=== PATIENT | male | born 1945 | race Caucasian/White ===

== ENCOUNTER → 2019-03-02 | Outpatient (CLI) | payer MEDICARE, OTHER, SELFPAY ==
--- NOTE | 2019-03-02 10:34 | NEURO_ITS ---
NCS and/or EMG Patient Report Ordering Doctor: Jose Barry DATE OF SERVICE: 03/02/19 This is a bilateral upper extremity nerve conduction study in the right upper extremity EMG performed on this 73-year-old male with numbness in his hands as well as trigger finger. He has a history of diabetes with his most recent h emoglobin A1c around 9. Bilateral upper extremity sensory and motor nerve conduction studies are performed demonstrating prolongation of the median motor and sensory distal latencies with intact amplitudes but severe reduction in conduction velocities. The ulnar motor and sensory and radial sensory responses are symmetrically preserved however there is non-localizable reduction of the ulnar amplitude above the wrist. The median and ulnar F waves bilaterally are prolonged. Needle electromyography of the right upper extremity is performed. Muscles evaluated included the first dorsal interosseous, abductor pollicis brevis, brachioradialis, biceps, triceps and deltoid muscles. The abductor pollicis brevis muscle did demonstrate 1-2+ insertional activity with early recruitment and large motor unit amplitudes. The first dorsal interosseous to a lesser extent demonstrated early recruitment with large motor units but absence of pathologic spontaneous activity. All other muscles tested demonstrated normal insertional activity with absence of pathologic spontaneous activity and normal motor unit recruitment pattern as well as amplitude. 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 There is also evidence of non-localizable ulnar neuropathy bilaterally with an additional superimposed poly-neuropathy likely due to the patient's history of diabetes.
== END | disposition home or self-care (01) ==
PROVIDERS: Family Provider Family Medicine; PCP Family Medicine; Referring Provider Orthopaedic Surgery; Visit Provider Orthopaedic Surgery
DX: R20.2 Paresthesia of skin (principal); M25.531 Pain in right wrist
CPT/HCPCS: 95886; 95911

== ENCOUNTER 2021-04-22 10:54 | Day surgery (SDC) | payer MEDICARE, OTHER, SELFPAY ==
[2021-04-22 11:30] VITALS: BP 152/79; PULSE 70; RESP 16; TEMP 36.8; O2SAT 98; BMI 34.9
[2021-04-22] MEDS: Lactated Ringers 1,000 ML 100 ML IV (11:35)
[2021-04-22 11:56] LABS: Bedside Glucose 125 mg/dL (70-110)
--- NOTE | 2021-04-22 12:51 | RAD_ITS ---
STUDY: X-RAY - LUMBAR SPINE REASON FOR EXAM: Male, 75 years old. Spinal cord stimulator implant placement. TECHNIQUE: 7 intraprocedural digital documentation view(s) of the lumbar spine were obtained. COMPARISON: None FINDINGS: 7 images show placement of spinal stimulator. RAD/Lumbar Spine 2 or 3 Views IMPRESSION: Intraprocedural digital documentation images. Electronically Signed: Reynaldo Epps MD at 12:13 EDT , Service support ,
[2021-04-22] MEDS: Cefazolin 2 GM in 0.9% Normal Saline 100 ML IV (13:05)
[2021-04-22] MEDS: Lidocaine 2% (20 ml mdv) 20 ML Vial (13:35)
[2021-04-22] MEDS: Bupivacaine 0.25% 30 ML Vial (13:35)
[2021-04-22 14:52] VITALS: BP 142/67; BP 152/79; PULSE 69; RESP 16; TEMP 36.8; O2SAT 95
[2021-04-22 14:57] VITALS: BP 121/66; BP 152/79; PULSE 70; RESP 16; O2SAT 95
[2021-04-22 15:02] VITALS: BP 117/78; BP 152/79; PULSE 69; RESP 16; O2SAT 94
[2021-04-22 15:07] VITALS: BP 122/74; BP 152/79; PULSE 64; RESP 16; TEMP 36; O2SAT 93
[2021-04-22 16:20] VITALS: BP 143/93; BP 152/79; PULSE 70; RESP 16; TEMP 36.3; O2SAT 96
--- NOTE | 2021-04-22 16:48 | PCM.OPRPT ---
Report of Operation Date of Procedure: 04/22/21 Description of Surgical Findings:: Pre-Operative Diagnosis: Lumbosacral radiculopathy, lumbosacral degenerative disc disease, lumbosacral spinal stenosis Post-Operative Diagnosis: Lumbosacral radiculopathy, lumbosacral degenerative disc disease, lumbosacral spinal stenosis Surgery/Procedure Performed:: 1. Spinal cord stimulator thoracolumbar leads placement x2 #2 spinal cord stimulator Medtronic intellus generator placement #3 spinal cord stimulator generator pocket creation at the left gluteal region #4 spinal cord stimulator simple programming, 5-intraoperative fluoroscopic interpretation Description of Surgical Findings:: PROCEDURES: 1. Spinal cord stimulator thoracolumbar leads placement x2 #2 spinal cord stimulator Medtronic intellus generator placement #3 spinal cord stimulator generator pocket creation at the left gluteal region #4 spinal cord stimulator simple programming 5-intraoperative fluoroscopic interpretation PREOPERATIVE DIAGNOSES: Lumbosacral radiculopathy, lumbosacral degenerative disc disease, lumbosacral spinal stenosis POSTOPERATIVE DIAGNOSES: Lumbosacral radiculopathy, lumbosacral degenerative disc disease, lumbosacral spinal stenosis ANESTHESIA: MAC COMPLICATIONS: None BLOOD LOSS: Minimal Implanted device: Spinal cord stimulator lead [id number] lot number [id number], lead #2 [id number] lot number [id number] Medtronic spinal cord stimulator generator intellus serial number [id number] PROCEDURE IN DETAIL: History and physical today was reviewed. Risks and benefits of procedure explained. The patient understood, agreed to procedure, informed consent was obtained. IV inserted per routine protocol. The patient was taken to the operating room, placed in the prone position with a pillow positioned underneath the abdomen. A 2 g of Ancef IV piggyback was infused per anesthesia. The lower back and left gluteal area was prepped and draped in a sterile fashion using iodine x3 Ioban was placed. The C-arm was brought in position for AP view at the L2-3 vertebral bodies under direct visualization fluoroscopy on a true AP view the L2-3 interlaminar space was identified skin and subcutaneous tissue and size approximately 10 cc of a mix of 2% lidocaine and 0.25% Marcaine using a 25-gauge regular needle followed by a 25-gauge 3-1/2 inch spinal needle towards the interlaminar space at L2-3, the skin and subcutaneous tissue were then anesthetized and using an 11-gauge blade was then taken down to the skin and subcutaneous tissue using a 14-gauge 3-1/2 inch Touhy needle provided by the [employer] kit the needle was passed through the skin towards the interlaminar space at L2-3 and a paramedian approach the needle was then advanced under direct visualization fluoroscopy towards the interlaminar space at L2-3 [id number] technique was then carried to air towards the interlaminar space at L2-3 once the tip of the needle was in the epidural space and loss of resistance was encountered to air and after confirmation of AP as well as oblique view of the spinal cord stimulator lead was then advanced under direct visualization fluoroscopy to be at the tip of the lead at T8 and the bottom of the lead around mid T10 after confirmation of AP as well as lateral view to confirm correct placement of the lead in the posterior compartment of the epidural space the previous procedure was then repeated to a level above at L1-2 interlaminar space the second lead was then inserted under direct visualization with fluoroscopy to be at the mid T8 and mid T10 area the leads were were then connected to the external neurostimulator and patient was then awakened to confirm satisfactory coverage of the painful area once satisfactory coverage was then achieved the stylette of each needle was then removed and the skin and subcutaneous tissue on to the left of the paramedian needles was then taken anesthetized with a total of 10 cc of the previous mixture of 0.25% Marcaine and 2% lidocaine using a 25-gauge regular needle the incision was then taken down through the skin and subcutaneous tissue towards the fascia making sure hemostasis was then maintained via cautery, the spinal cord stimulator leads were then passed through the above incision and secured using the biwing and sutured down with a 2-0 silk to the fascia at that level the spinal cord stimulator leads were then tunneled via a tunneler provided by the [employer] kit towards the previously incised spinal cord stimulator battery at the left gluteal region skin and subcutaneous tissue were anesthetized with approximately 10 cc of a mix of 2% lidocaine and 0.25% Marcaine using a 25 gauge regular needle, skin and subcutaneous tissue was then taken down with the 11-gauge blade hemostasis was maintained with Bovie and direct pressure the incision was then taken down to the fascia and the battery was then secured with the 2-0 silk sutures that were the spinal cord stimulator leads the upper lead was then marked the new until spinal cord stimulator battery was then provided [employer] kit the battery was then reattached of the spinal cord stimulator make ensure that the top lead is attached to the top position from 0-7 electrodes and the bottom from 8-15 electrodes once impedance was then checked to be in the proper average number the intellus battery was then inserted into the pocket and impedance with when checked again the pocket was then inspected to confirm hemostasis in place, the intellus battery was then secured to the fascia using a 2-0 silk to the upper eyes of the battery confirming an upward writing of the intellus facing posterior, once complete confirmation the battery was then placed in the position and the the mid paramedian and the gluteal incisions were then closed primarily through a 3-0 Vicryl in a running fashion followed by a 4-0 Vicryl to the skin, hemostasis was then maintained during the procedure the skin was then covered with a Steri-Strips and bacitracin patient was then returned into the supine position in a stable condition and returned to recovery in a stable condition patient experienced no signs or symptoms of intrathecal or intravascular injection patient experienced no paresthesia the procedure was completed without any apparent difficulty any complication the patient appeared to tolerate well, motor as well as sensory function was unchanged from prior to the procedure ESTIMATED BLOOD LOSS: Minimal less than 25 mL ASSESSMENT AND PLAN: This is a 75-year-old male with lumbosacral radiculopathy lumbosacral degenerative disc disease lumbosacral spinal stenosis status post 1. Spinal cord stimulator thoracolumbar leads placement x2 #2 spinal cord stimulator Medtronic intellus generator placement #3 spinal cord stimulator generator pocket creation at the left gluteal region #4 spinal cord stimulator simple programming, 5-intraoperative fluoroscopic interpretation patient will continue his current medications a prescription was provided to the patient Keflex 500 mg 1 p.o. every 8 hours for 7 days postop instruction were given in writing to the patient and his as well as verbally and in writing, patient will follow approximately 1 week for reevaluation
== END 2021-04-22 16:53 | disposition home or self-care (01) ==
LOC: SDC 10:55 → AC 10:56
PROVIDERS: PCP Family Medicine; Referring Provider Anesthesiology Pain Medicine; Visit Provider Anesthesiology Pain Medicine
PROC: (CPT 63685; principal; 2021-04-22 12:35)
DX: Z45.42 Encounter for adjustment and management of neurostimulator (principal); M48.07 Spinal stenosis, lumbosacral region; M51.17 Intervertebral disc disorders with radiculopathy, lumbosacral region; I10 Essential (primary) hypertension; E03.9 Hypothyroidism, unspecified; E11.9 Type 2 diabetes mellitus without complications; M19.90 Unspecified osteoarthritis, unspecified site; I25.2 Old myocardial infarction; R58 Hemorrhage, not elsewhere classified; I25.10 Atherosclerotic heart disease of native coronary artery without angina pectoris; Z79.4 Long term (current) use of insulin; Z79.82 Long term (current) use of aspirin; Z79.899 Other long term (current) drug therapy; Z79.02 Long term (current) use of antithrombotics/antiplatelets; Z87.891 Personal history of nicotine dependence; Z79.891 Long term (current) use of opiate analgesic
CPT/HCPCS: 00300; 63650; 63685; 95971; 72100; 76000; 82962; C1778; C1820; J7120; J2405

== ENCOUNTER → 2021-07-11 20:02 | Outpatient (CLI) | payer MEDICARE, OTHER, SELFPAY ==
--- NOTE | 2021-07-11 20:42 | ED.RN ---
PATIENT SENT IN BY PCP PLASTERER FOREMAN FOR CONCERN FOR WIRE DISPLACEMENT FROM NERVE STIMULATOR. PER PLASTERER FOREMAN PHONE CALL AND ORDER WAS PLACED FOR OUTPATIENT TESTING. UNABLE TO OBTIAN ORDER AT THIS TIME. PATIENT CALLED PLASTERER FOREMAN VICENTE VARGAS AND VERBAL ORDER GIVEN TO THIS NURSE. PLACED ORDER BUT UNABLE TO PLACE ORDER UNDER THE PATIENTS PLASTERER FOREMAN. TELEPHONE ORDER PLACED UNDER DR. NGUYEN PATIENTS PRIMARY AT THIS TIME
--- NOTE | 2021-07-11 20:53 | RAD_ITS ---
STUDY: X-RAY - THORACIC SPINE REASON FOR EXAM: Male, 75 years old. SPINAL CORD STIMULATOR WIRE PLACEMENT S/P FALL TECHNIQUE: AP and lateral radiographic view(s) of the thoracic spine were obtained. COMPARISON: 05/22/2021 fluoroscopy FINDINGS: Spinal stimulator leads terminate at T9 (right lead) and T11 (left lead). Normal kyphosis of the thoracic spine. There is no substantial scoliosis. There is multilevel mild endplate spondylosis of the thoracic vertebrae. Normal disc space heights. The soft tissue structures are unremarkable. 2 cardiac leads partially demonstrated. RAD/Thoracic Spine 2 Views IMPRESSION: The right stimulator lead terminates at T9, as on 05/28/2021. The left stimulator lead terminates at T11, which is too level lower than 05/28/2021. Electronically Signed: Anthony Hernandez MD at 22:21 EDT Tel , Service support ,
== END ==
PROVIDERS: PCP Family Medicine; Visit Provider Anesthesiology Pain Medicine
DX: Z96.82 Presence of neurostimulator (principal)
CPT/HCPCS: 72070

== ENCOUNTER → 2021-07-12 13:56 | Outpatient (CLI) | payer MEDICARE, OTHER, SELFPAY ==
--- NOTE | 2021-07-12 14:35 | CT_ITS ---
STUDY: CT LUMBAR SPINE WITH CONTRAST REASON FOR EXAM: Male, 75 years old. R/O INFECTION / DISCITIS RADIATION DOSAGE (If Supplied By Facility): CTDIvol = ( 39.36 ) mGy, DLP = ( 1458.80 ) mGycm TECHNIQUE: The patient was scanned in a multi detector CT scanner. High resolution transaxial imaging was performed following the intravenous administration of . Images were obtained from L1 to S1 vertebral level. Sagittal and coronal images were reconstructed. Individualized dose optimization techniques were used for this CT. COMPARISON: None FINDINGS: Spinal cord stimulator electrodes are seen along the posterior epidural space. Normal lumbar lordosis. There is no substantial scoliosis. Normal vertebrae of the lumbar spine. L1-2: Mild degree of disc space narrowing. Anterior spondylosis. L2-3: Mild degree of anterior spondylosis. The disc spaces well maintained. L3-4: Normal endplates. Normal disc height and morphology. Normal bilateral facet joints. Normal central canal and bilateral lateral recesses. Normal bilateral intervertebral neural foramina. L4-5: Facet joint osteoarthritis. Hypertrophy. Mild degree of bilateral neural foraminal stenosis. L5-S1: Normal endplates. Normal disc height and morphology. Normal bilateral facet joints. Normal central canal and bilateral lateral recesses. Normal bilateral intervertebral neural foramina. There is a 3.9 cm x 5.3 cm cyst in the upper pole of the right kidney. There is a 1.5 cm cyst in the upper pole of the left kidney. There is also evidence of a dominant cyst in the lower pole of the right kidney measuring 6 cm as well as a small cyst in the lower pole of the left kidney. There is evidence of prominent soft tissue density measuring 4.7 cm x 1.7 cm posterior to the L1-L2 disc space level within the subcutaneous tissues this is at the entrance site of the electrodes from the stimulator device. There is evidence of overlying skin thickening and findings suggestive of possible ulceration at that site. Clinical correlation is recommended. CT/Spine Lumbar WITH Contrast IMPRESSION: Multilevel degenerative changes, as described above. Soft tissue thickening and ulceration of the overlying skin posterior to the L1-L2 level at the entrance of the electrodes from the stimulator device. No abscess is seen at that site at this time. Bilateral renal cysts more prominent on the right side. Electronically Signed: Christiano Rosado MD at 15:13 EDT , Service support ,
[2021-07-12 14:41] LABS: CREATININE FINGERSTICK 1.4 mg/dL (0.70-1.30)
== END ==
PROVIDERS: PCP Family Medicine; Visit Provider Anesthesiology Pain Medicine
DX: M46.40 Discitis, unspecified, site unspecified (principal)
CPT/HCPCS: 72132; Q9967

== ENCOUNTER 2021-07-15 11:39 | Inpatient (IN) | payer MEDICARE, OTHER, SELFPAY ==
[2021-07-15] VITALS (7 sets, daily range): BP systolic 124–163; BP diastolic 60–98; PULSE 64–89; RESP 18–24; TEMP 36.6–37.4; O2SAT 95–98; BMI 33.6; BMI 34.0
[2021-07-15 12:10] LABS: Absolute Lymphocyte Count 0.98 X10^3/uL (0.83-4.51); Absolute Neutrophil Count 9.2 X10^3/uL (2.0-7.7); Basophil# 0.05 X10^3/uL; Basophil% 0.4 % (0-1); Eosinophil# 0.07 X10^3/uL; Eosinophils% 0.6 % (0-5); Hematocrit 30.7 % (40-54); Lymphocyte # 0.98 X10^3/ul (0.83-4.51); Lymphocyte % 8.5 % (19-41); Mean Corp Hgb Conc 32.6 g/dL (32-36); Mean Corpuscular Hgb 28.2 pg (27.0-32.0); Mean Corpuscular Volume 86.5 fL (80-94); Monocyte# 1.16 X10^3/uL; Monocyte% 10.1 % (0-10); NRBC Flagged by Analyzer 0 % (0-5); Neutrophil # 9.17 X10^3/uL (2.7-7.7); Platelet Count 267 K/mm3 (150-450); RBC Distribution Width CV 13.2 % (11.6-14.6); RBC Distribution Width SD 42.3 fl (35.1-43.9); Red Blood Count 3.55 M/mm3 (4.6-6.2); White Blood Count 11.5 K/mm3 (4.4-11.0)
[2021-07-15 12:55] LABS: Anion Gap 7 (5-15); BUN 26 mg/dL (7-18); BUN/Creat Ratio 18.7 RATIO (10-20); Calcium,Total 8.8 mg/dL (8.5-10.1); Chloride 103 mmol/L (98-107); Creatinine, Serum 1.39 mg/dL (0.70-1.30); EST Glomerular Filtration Rate 53 mL/min (>60); Est Glom Filt Rate - Afr Amer 64 mL/min (>60); Estimated Creatinine Clearance 48.91 ml/min; Glucose 46 mg/dL (74-106); Potassium 4.1 mmol/L (3.5-5.1); Sodium Level 135 mmol/L (136-145)
--- NOTE | 2021-07-15 13:37 | EKG12_ITS ---
Test Reason : Blood Pressure : / mmHG Vent. Rate : 071 BPM Atrial Rate : 071 BPM P-R Int : 194 ms QRS Dur : 180 ms QT Int : 504 ms P-R-T Axes : 070 -82 073 degrees QTc Int : 547 ms Atrial-sensed ventricular-paced rhythm Abnormal ECG Confirmed by MAXIMILIAN MATHIS, LAUREN ([id number]), assistant production editor CATHY HEAD ([id number]) on 07/17/2021 10:21:31 AM Referred By: ROBERT Confirmed By:LAUREN YAO MD
--- NOTE | 2021-07-15 14:02 | RAD_ITS ---
STUDY: X-RAY CHEST REASON FOR EXAM: Male, 75 years old. Sob TECHNIQUE: Single AP portable view of the chest. COMPARISON: None. FINDINGS: EKG electrodes are seen. Electrodes from a TENS unit are seen with the tip at the T8-T9 level. The lungs are clear and expanded. There is no demonstrated pleural abnormality. A left-sided dual-chamber pacemaker is seen. Normal mediastinum and rajwinder. Normal visualized pulmonary arteries. There is atherosclerotic calcification of the aortic arch with tortuosity. Normal visualized thoracic spine. Normal visualized ribs, clavicles, and shoulders. There is no demonstrated abnormality of the visualized soft tissue structures of the upper abdomen. RAD/Chest 1 View (Portable) IMPRESSION: No acute abnormality is present. Electronically Signed: Christiano Rosado MD at 14:32 EDT , Service support ,
--- NOTE | 2021-07-15 14:20 | EX.ED.DYSGE1 ---
HPI History of Present Illness Chief Complaint: Wound Informant: patient Narrative Narrative: 75-year-old male presenting with wound infection. Patient was sent in by Dr. Boles. He had a spinal stimulator implanted approximately 3 months ago. The incision has opened and is now infected. He has been on Augmentin since Thursday. He has had fever up to 100.[address] was obtained as an outpatient. Discussed with Dr. Boles who recommends admission for IV antibiotics and ID consult. He is on Plavix so this will need to be on hold for possible surgery for removal. Prior similar symptoms: No Recent Illness/Hospitalization: No [facility] Medical History (Updated 07/15/21 @ 15:[address] Lisset Lopez MD) Arthritis Back pain Back problem Back problem Cardiology follow-up encounter Diabetes Diabetes type 2, controlled Easy bruising Excessive bleeding Former smoker Heart disease High cholesterol History of heart attack History of irregular heartbeat History of stress test HTN (hypertension) Hx of cardiac pacemaker (~08/2020) Hx of fracture of leg Hx of fracture of right hip Insulin dependent diabetes mellitus Thyroid disease Wears glasses Wears hearing aid Home Medications aspirin 81 mg tablet,delayed release 81 mg PO DAILY 02/02/18 [History Last Taken Unknown] blood sugar diagnostic #20 ea 02/02/18 [History Last Taken Unknown] clopidogrel 75 mg tablet 75 mg PO QDAY tab 02/02/18 [History Last Taken 04/13/21] levothyroxine 50 mcg tablet 50 mcg PO DAILY 02/02/18 [History Last Taken Unknown] magnesium hydroxide 400 mg (170 mg magnesium) chewable tablet 400 mg PO DAILY 02/02/18 [History Last Taken Unknown] multivitamin 1 tab PO QDAY 02/02/18 [History Last Taken Unknown] rosuvastatin 40 mg tablet 40 mg PO QDAY 02/02/18 [History Last Taken Unknown] tramadol 50 mg tablet 50 mg PO QDAY PRN tab 02/02/18 [History Last Taken Unknown] cholecalciferol (vitamin D3) 25 mcg (1,000 unit) capsule 1,000 unit PO QDAY 02/11/18 [History Last Taken Unknown] metformin 850 mg tablet 850 mg PO BID tab 02/11/18 [History Last Taken Unknown] nitroglycerin 0.4 mg sublingual tablet 0.4 mg SUBLINGUAL Q5M PRN 02/11/18 [History Last Taken Unknown] insulin aspart U-100 100 unit/mL (3 mL) subcutaneous pen 24 unit SC TID #9 ml 08/30/18 [Rx Last Taken Unknown] dulaglutide [Trulicity] 1.5 mg SUBCUT QWEEK 04/16/21 [History Last Taken Unknown] insulin glargine [Lantus Solostar U-100 Insulin] 70 unit SC QHS 04/16/21 [History Last Taken Unknown] Allergy/AdvReac Type Severity Reaction Status Date / Time No Known Allergies Allergy Verified 04/16/21 14:14 Family History Mother Diabetes Father Cancer Surgical History History of cardiac catheterization (~2012) History of carpal tunnel surgery of left wrist History of carpal tunnel surgery of right wrist History of coronary artery stent placement Social History (Updated 02/15/18 @ 08:58 by Reva Bloom ELECTRICAL AUTOMATION ENGINEER, ELECTRICAL AUTOMATION ENGINEER-C) Smoking Status: Former smoker second hand exposure: No alcohol intake: never substance use type: does not use ROS ROS ED Constitutional Constitutional ED: Reports chills and fever(s) Eyes Eyes: Denies change in vision ENT ENT ED: Denies rhinorrhea or sore throat Cardiovascular Cardiovascular: Denies chest pain or palpitations Respiratory/Chest Respiratory/Chest: Denies cough or dyspnea Gastrointestinal Gastrointestinal: Denies abdominal pain, diarrhea, nausea or vomiting Genitourinary Genitourinary ED: Denies dysuria Musculoskeletal Musculoskeletal: Reports back pain; Denies myalgias Integumentary Denies rash Neurologic Neurologic: Denies headache(s), paresthesias or weakness Psychiatric Psychiatric: Denies suicidal thoughts EXAM Physical Exam Const Vital Signs: 07/15/21 11:41 07/15/21 13:01 07/15/21 14:27 Temperature 99.1 F 99 F Temperature Source Temporal Temporal Pulse Rate 89 80 69 Respiratory Rate 18 24 H 22 H Blood Pressure 163/78 H 153/98 H 124/60 H Blood Pressure Mean 106 116 81 Pulse Ox 95 97 95 Oxygen Delivery Method Room Air Room Air Room Air Positive well nourished and well developed General Appearance ED: well developed HEENT Reports normocephalic and head/scalp atraumatic Eyes PERRL and EOMs intact bilaterally Neck supple General: Negative for tenderness Chest Wall inspection of chest normal Resp normal respiratory effort and clear to auscultation bilaterally Cardio regular rate and regular rhythm GI non-tender and non-distended Palpation: soft; Negative for guarding or rebound tenderness present no CVA tenderness Back/Spine Back/Spine Narrative: Incision lower back with surrounding erythema, mild amount of serosanguineous drainage. No fluctuance. Extremity normal to inspection Neuro oriented x3 and no sensory deficits noted Sensorium / Orientation: alert Motor Exam: strength 5/5 throughout Psych mental status grossly normal MDM MDM MDM Narrative Medical decision making narrative: Blood and wound cultures were sent. CBC shows white count 11.5, hemoglobin 10.0. Chemistries show creatinine 1.39. Lactic acid is normal. High-sensitivity troponin 74. Covid is negative. Chest x-ray read by myself and radiology shows no acute process. Patient was given vancomycin IV. Discussed with hospitalist for admission. Lab Data Attestation: I reviewed the patient's lab results. Labs: Laboratory Results - last 24 hr 07/15/21 07/15/21 07/15/21 11:54 12:30 12:30 WBC 11.5 H RBC 3.55 L Hgb 10.0 L Hct 30.7 L MCV 86.5 MCH 28.2 MCHC 32.6 RDW Std Deviation 42.3 RDW Coeff of Konstantin 13.2 Plt Count 267 MPV 10.0 Immature Gran % (Auto) 0.400 Neut % (Auto) 80.0 H Lymph % (Auto) 8.5 L Dawson % (Auto) 10.1 H Eos % (Auto) 0.6 Baso % (Auto) 0.4 Absolute Neuts (auto) 9.2 H Absolute Lymphs (auto) 0.98 Nucleated RBC % 0 Sodium 135 L Potassium 4.1 Chloride 103 Carbon Dioxide 25.0 Anion Gap 7 BUN 26 H Creatinine 1.39 H Estim Creat Clear Calc 48.91 Est GFR (MDRD) Af Amer 64 Est GFR (MDRD) Non-Af 53 L BUN/Creatinine Ratio 18.7 Glucose 46 L Lactic Acid Calcium 8.8 Troponin I High Sens 74 07/15/21 13:47 WBC RBC Hgb Hct MCV MCH MCHC RDW Std Deviation RDW Coeff of Konstantin Plt Count MPV Immature Gran % (Auto) Neut % (Auto) Lymph % (Auto) Dawson % (Auto) Eos % (Auto) Baso % (Auto) Absolute Neuts (auto) Absolute Lymphs (auto) Nucleated RBC % Sodium Potassium Chloride Carbon Dioxide Anion Gap BUN Creatinine Estim Creat Clear Calc Est GFR (MDRD) Af Amer Est GFR (MDRD) Non-Af BUN/Creatinine Ratio Glucose Lactic Acid 0.9 Calcium Troponin I High Sens Radiography Chest X-Ray - ED: 1 View, Read by ED Physician and Read by Radiologist Diagnostic Testing: Radiology Impression Chest X-Ray 07/15/21 14:02 IMPRESSION: No acute abnormality is present. Electronically Signed: Christiano Rosado MD at 14:32 EDT , Service support , EKG Initial EKG: Attestation: I personally reviewed and interpreted this EKG as follows: Comments: Paced rhythm Discharge Plan Triage Chief Complaint: Wound ED Provider: Lisset Lopez Dx/Rx/DC Orders Clinical Impression: Wound infection Prescriptions: No Action aspirin [Adult Aspirin Regimen] 81 mg tablet,delayed release (DR/EC) 81 mg PO DAILY RF: 0 clopidogrel 75 mg tablet 75 mg PO QDAY RF: 0 levothyroxine [Levo-T] 50 mcg tablet 50 mcg PO DAILY RF: 0 magnesium hydroxide 400 mg (170 mg) chewable tablet 400 mg (170 mg) tablet,chewable 400 mg PO DAILY RF: 0 tramadol 50 mg tablet 50 mg PO QDAY PRN (Reason: Pain) RF: 0 rosuvastatin [Crestor] 40 mg tablet 40 mg PO QDAY RF: 0 (DME) blood sugar diagnostic [TrendalyticsTouch Verio test strips] strip See Dose Instructions .ROUTE .MEDSUPPLY Qty: 20 RF: 0 multivitamin tablet 1 tab PO QDAY RF: 0 metformin [Glucophage] 850 mg tablet 850 mg PO BID RF: 0 nitroglycerin 0.4 mg tablet, sublingual 0.4 mg SUBLINGUAL Q5M PRN (Reason: Chest Pain) RF: 0 cholecalciferol (vitamin D3) 1,000 unit capsule 1,000 unit PO QDAY RF: 0 Trulicity 1.5 mg/0.5 mL Pen Injector 1.5 mg SUBCUT QWEEK RF: 0 Lantus Solostar U-100 Insulin 100 unit/mL (3 mL) insulin pen 70 unit SC QHS RF: 0 Novolog Flexpen U-100 Insulin 100 unit/mL insulin pen 24 unit SC TID Qty: 9 RF: 5 Primary Care Provider: John Rabago Referrals: John Rabago MD [Primary Care Provider] - Disposition Disposition: Acute Care Hospital [facility] [place] [facility]
[2021-07-15 14:33] LABS: Lactic Acid 0.9 mmol/L (0.4-1.9)
[2021-07-15 14:34] LABS: Troponin-I HS 74 pg/mL (3.0-78.0)
--- NOTE | 2021-07-15 15:11 | PCM.HP.STD ---
HPI - General General Date of Admission: 07/15/21 Date of Service: 07/15/21 Chief Complaint: Progressive infected back wound HPI Narrative FIDELINA CONRAD, is a 75 M who presents with progressive low back wound and discharge. He is a patient of Dr. Boles. He had a spinal stimulator placed on 04/22/21 for advanced lumbosacral radiculopathy, lumbosacral degenerative disease and spinal stenosis. Patient states that his wound was closed after the procedure. He was recently admitted to [facility] and was lying mostly in bed when his wound irritated and opened up. He subsequently has been having progressive wound discharge. He had CT of the lumbar spine done on which showed soft tissue thickening ulceration of the overlying skin posterior to the L1-L2 level at the entrance of the left shows from the stimulator device. No abscess is seen at the site at this time. Patient was seen by Dr. Boles on 07/12/21 and was recommended started on Augmentin. He followed up today in the office and was recommended to come to the hospital for IV antibiotics. Wound cultures have been taken from the ED. Patient stated that his pain is 10 out of 10, usually in the lower back, does not radiate. Worse with sitting up and movement. He denied any fever or chills or nausea or vomiting or diarrhea or headaches of blurred vision or neck pain. No progressive numbness or tingling no incontinence of urine or stool. [facility] Medical History Arthritis Back pain Back problem Back problem Cardiology follow-up encounter Diabetes Diabetes type 2, controlled Easy bruising Excessive bleeding Former smoker Heart disease High cholesterol History of heart attack History of irregular heartbeat History of stress test HTN (hypertension) Hx of cardiac pacemaker (~08/2020) Hx of fracture of leg Hx of fracture of right hip Insulin dependent diabetes mellitus Thyroid disease Wears glasses Wears hearing aid Home Medications aspirin 81 mg tablet,delayed release 81 mg PO DAILY 02/02/18 [History Last Taken 07/14/21] clopidogrel 75 mg tablet 75 mg PO DAILY tab 02/02/18 [History Last Taken 07/12/21] multivitamin 1 tab PO DAILY 02/02/18 [History Last Taken 07/15/21] rosuvastatin 40 mg tablet 40 mg PO DAILY 02/02/18 [History Last Taken 07/15/21] tramadol 50 mg tablet 50 mg PO DAILY tab 02/02/18 [History Last Taken Unknown] nitroglycerin 0.4 mg sublingual tablet 0.4 mg SUBLINGUAL Q5M PRN 02/11/18 [History Last Taken Unknown] insulin aspart U-100 100 unit/mL (3 mL) subcutaneous pen 24 unit SC TID #9 ml 08/30/18 [Rx Last Taken 07/15/21] dulaglutide [Trulicity] 1.5 mg SUBCUT WE 04/16/21 [History Last Taken 07/10/21] insulin glargine [Lantus Solostar U-100 Insulin] 70 unit SC QHS 04/16/21 [History Last Taken 07/14/21] gabapentin 600 mg PO TID 07/15/21 [History Last Taken 07/15/21] metformin 850 mg PO BID 07/15/21 [History Last Taken 07/15/21] nabumetone 750 mg PO BID 07/15/21 [History Last Taken 07/15/21] Allergy/AdvReac Type Severity Reaction Status Date / Time No Known Allergies Allergy Verified 04/16/21 14:14 Family History Mother Diabetes Father Cancer Surgical History History of cardiac catheterization (~2012) History of carpal tunnel surgery of left wrist History of carpal tunnel surgery of right wrist History of coronary artery stent placement Social History Smoking Status: Former smoker second hand exposure: No alcohol intake: never substance use type: does not use ROS ROS Narrative Constitutional:Denies: Anorexia, Chills, Fever, Night Sweats, Weight Change, Malaise, Weakness, Fatigue. Eyes: Denies: Blurred vision, Cataracts, Conjunctivae Inflammation, Pain, Redness, Vision Change HEENT: Denies: Difficulty Hearing, Difficulty Swallowing, Head Aches, Hearing Changes, Sinus Congestion, Sinus Drainage Cardiovascular: Denies: Chest Pain, Orthopnea, Palpitations Respiratory: Denies: Cough, Shortness of breath at rest, Sputum production Gastrointestinal: Denies: Abdominal Pain, Nausea, Vomiting Genitourinary: Denies: Dysuria Musculoskeletal: See HPI Skin: See HPI Neurological: Denies: Numbness, Tingling, Focal weakness Vital Signs Vital Signs Vital Signs: 07/15/21 11:41 07/15/21 13:01 07/15/21 14:27 Temperature 99.1 F 99 F Temperature Source Temporal Temporal Pulse Rate 89 80 69 Respiratory Rate 18 24 H 22 H Blood Pressure 163/78 H 153/98 H 124/60 H Blood Pressure Mean 106 116 81 Pulse Ox 95 97 95 Oxygen Delivery Method Room Air Room Air Room Air 07/15/21 15:10 07/15/21 15:11 Temperature 99.4 F H 99.4 F H Temperature Source Temporal Temporal Pulse Rate 64 66 Respiratory Rate 20 H 20 H Blood Pressure 135/80 H 135/80 H Blood Pressure Mean 98 98 Pulse Ox Oxygen Delivery Method Room Air Weight Weight: 109.316 kg Body Mass Index (BMI) 33.6 Physical Exam Narrative Physical exam: General: Alert, Oriented x3, Cooperative, No apparent distress, Well developed, hard of hearing, obese HEENT: Atraumatic Oral: Moist Mucosa Neck: Supple Lungs: Clear to auscultation Cardiovascular: HS I+II, regular, no murmurs Abdomen: Bowel Sounds Present, Soft, Non Tender Extremities: No edema Skin: Swelling over lumbosacral region?L1/L2, fluctuant, slight discharge, tender, no surrounding erythema Results Lab / Micro Data Result Diagrams: 07/15/21 11:54 07/15/21 12:30 Labs: Laboratory Results - last 24 hr 07/15/21 11:54: WBC 11.5 H, RBC 3.55 L, Hgb 10.0 L, Hct 30.7 L, MCV 86.5, MCH 28.2, MCHC 32.6, RDW Std Deviation 42.3, RDW Coeff of Konstantin 13.2, Plt Count 267, MPV 10.0, Immature Gran % (Auto) 0.400, Neut % (Auto) 80.0 H, Lymph % (Auto) 8.5 L, [place] % (Auto) 10.1 H, Eos % (Auto) 0.6, Baso % (Auto) 0.4, Absolute Neuts (auto) 9.2 H, Absolute Lymphs (auto) 0.98, Nucleated RBC % 0 07/15/21 12:30: Sodium 135 L, Potassium 4.1, Chloride 103, Carbon Dioxide 25.0, Anion Gap 7, BUN 26 H, Creatinine 1.39 H, Estim Creat Clear Calc 48.91, Est GFR (MDRD) Af Amer 64, Est GFR (MDRD) Non-Af 53 L, BUN/Creatinine Ratio 18.7, Glucose 46 L, Calcium 8.8 07/15/21 12:30: Troponin I High Sens 74 07/15/21 13:47: Lactic Acid 0.9 Micro: Microbiology 07/15/21 13:50 Nasal Secretion SARS-CoV-2 Antigen (Rapid) - Final Radiology Impression Chest X-Ray 07/15/21 14:02 IMPRESSION: No acute abnormality is present. Electronically Signed: Christiano Rosado MD at 14:32 EDT , Service support , Assessment & Plan Assessment/Plan (1) Wound dehiscence: (2) Type 2 diabetes mellitus with complication, with long-term current use of insulin: (3) Essential hypertension, benign: (4) Heart disease: (5) Hypothyroid: QUALIFIERS: Hypothyroidism type: acquired Qualified Code(s): E03.9 - Hypothyroidism, unspecified PLAN: 1. Acute lumbar sacral and wound dehiscence;patient with underlying spinal stimulator placed on 04/22/21 There is concern for possible infected spinal stimulator Admitting WBC count is 11.5 Patient had a recent CT of the lumbar spine that showed soft tissue thickening and ulceration of the overlying skin Patient cannot have an MRI Discussed with Dr. Boles -for consult infectious disease, IV vancomycin and Zosyn Follow-up on wound cultures taken in the ED Wound RN consult We will hold Plavix and aspirin in anticipation of surgery Continue current tramadol for pain 2. Recent acute kidney injury in an outside hospital Patient being admitted creatinine 1.39, unclear recent creatinine levels 3. Type II DM, complicated by peripheral neuropathy, with current hypoglycemia on admitting BMP Will hold Lantus for now as well as Metformin Continue insulin sliding scale with blood glucose checks for now Continue gabapentin 4. Hyperlipidemia, on statin I discussed and explained in details the various types of CODE STATUS-full code, DNR CCA, DNR CC. Patient chose full code. He wants everything done in the event of a cardiopulmonary arrest. Time spent discussing CODE STATUS 18 minutes Charges/Coding Visit Charges Inpatient E&M: 09154 Init Hosp L3 Procedures Hospitalists Procedures: 74521 Advncd Care Plan 30 Min
[2021-07-15 15:26] LABS: Bedside Glucose 88 mg/dL (70-110)
[2021-07-15 17:26] LABS: Bedside Glucose 106 mg/dL (70-110)
[2021-07-15] MEDS: 0.9% Normal Saline 1,000 ML 75 ML IV (17:28)
[2021-07-15 21:46] LABS: Bedside Glucose 158 mg/dL (70-110)
[2021-07-15] MEDS: Atorvastatin Calcium 80 MG Tablet PO (21:51)
[2021-07-15] MEDS: Insulin Lispro 100 UNIT/ML INSULN.PEN SC (21:51)
[2021-07-15] MEDS: Gabapentin 600 MG Tablet PO (21:51)
[2021-07-15] MEDS: traMADol 50 MG Tablet PO (21:51)
[2021-07-16] MEDS: Acetaminophen 325 MG Tablet 650 MG PO ×2 (01:12→10:21)
[2021-07-16] MEDS: MELATONIN 3 MG TABLET PO (01:12)
[2021-07-16 03:58] VITALS: BP 144/84; PULSE 74; RESP 16; TEMP 37.2; O2SAT 93
[2021-07-16] MEDS: Vancomycin IV 1,000 MG/200 ML BAG 200 MG IV ×2 (04:04→16:21)
[2021-07-16 06:22] LABS: Absolute Lymphocyte Count 0.88 X10^3/uL (0.83-4.51); Absolute Neutrophil Count 8.6 X10^3/uL (2.0-7.7); Basophil# 0.06 X10^3/uL; Basophil% 0.6 % (0-1); Eosinophil# 0.21 X10^3/uL; Eosinophils% 1.9 % (0-5); Hematocrit 27.5 % (40-54); Hemoglobin 8.7 g/dL (13.0-16.5); Lymphocyte # 0.88 X10^3/ul (0.83-4.51); Lymphocyte % 8.1 % (19-41); Mean Corp Hgb Conc 31.6 g/dL (32-36); Mean Corpuscular Hgb 27.6 pg (27.0-32.0); Mean Corpuscular Volume 87.3 fL (80-94); Mean Platelet Vol. 9.6 fl (6.2-12.0); Monocyte# 1.09 X10^3/uL; Monocyte% 10.1 % (0-10); NRBC Flagged by Analyzer 0 % (0-5); Neutrophil # 8.55 X10^3/uL (2.7-7.7); Neutrophil % 78.9 % (47-70); Platelet Count 228 K/mm3 (150-450); RBC Distribution Width CV 13.3 % (11.6-14.6); RBC Distribution Width SD 42.9 fl (35.1-43.9); Red Blood Count 3.15 M/mm3 (4.6-6.2); White Blood Count 10.8 K/mm3 (4.4-11.0)
[2021-07-16] MEDS: Insulin Lispro 100 UNIT/ML INSULN.PEN SC ×4 (06:31→21:39)
[2021-07-16] MEDS: Gabapentin 600 MG Tablet PO ×3 (06:31→21:39)
[2021-07-16] MEDS: Levothyroxine 50 MCG Tablet PO (06:31)
[2021-07-16 06:41] LABS: Bedside Glucose 179 mg/dL (70-110)
[2021-07-16 06:49] LABS: ALB/GLOB Ratio 0.4 RATIO (0.9-2.4); AST(SGOT) 22 U/L (15-37); Alanine Aminotransfer ALT/SGPT 22 U/L (16-61); Albumin, Serum 2.1 g/dL (3.2-5.0); Alkaline Phosphatase 79 U/L (45-117); Anion Gap 7 (5-15); BUN 23 mg/dL (7-18); BUN/Creat Ratio 16.8 RATIO (10-20); Chloride 105 mmol/L (98-107); Creatinine, Serum 1.37 mg/dL (0.70-1.30); EST Glomerular Filtration Rate 54 mL/min (>60); Est Glom Filt Rate - Afr Amer 65 mL/min (>60); Estimated Creatinine Clearance 49.62 ml/min; Globulin 4.9 g/dL (2.2-4.2); Glucose 214 mg/dL (74-106); Potassium 4.4 mmol/L (3.5-5.1); Sodium Level 137 mmol/L (136-145)
[2021-07-16] MEDS: Juven (unflavored) Packet 1 PACKET PO ×2 (07:43→16:25)
[2021-07-16 07:53] VITALS: BP 144/69; PULSE 66; RESP 18; TEMP 37.1; O2SAT 95
--- NOTE | 2021-07-16 08:28 | WOUNDNOTE ---
wound photo: mid lower back
--- NOTE | 2021-07-16 09:33 | PCM.CONS.GEN ---
Assessment & Plan Assessment/Plan (1) Wound infection: PLAN: Concern for infection of spine stimulator at spine implantation site. Wound cx pending. CT done recently. Pt of Dr. Boles. Is covid vaccinated. On augmentin for a few days prior to admit. Cont vanc, will change zosyn to cefepime in order to have some PASTRY DECORATOR penetration as a precaution. May need device removal, otherwise will need indefinite course of abx given suspected infected hardware. Will follow, thank you, d/w nursing HPI Consult Data Date of Consult: 07/16/21 HPI Narrative HPI Narrative: FIDELINA CONRAD, is a 75 M who presented with dehiscence, pain, redness over lumbar site of implanted spine stimulator. Minimal symptoms over L hip device. Device implanted by Dr. Boles 04/22/21. Pt recently admitted to [facility] for uti, given iv abx. While in bed, back got irritated, worsening symptoms over past week. Completed abx for uti about a week ago. Saw Dr. Boles for his wound, given augmentin starting 07/12. Some mild fever and chills, no n/v/d. No headache or neck pain. Has had covid vaccine. Admitted here on vanc/zosyn. Full ROS performed and neg except as noted above. [facility] Medical History Arthritis Back pain Back problem Back problem Cardiology follow-up encounter Diabetes Diabetes type 2, controlled Easy bruising Excessive bleeding Former smoker Heart disease High cholesterol History of heart attack History of irregular heartbeat History of stress test HTN (hypertension) Hx of cardiac pacemaker (~08/2020) Hx of fracture of leg Hx of fracture of right hip Insulin dependent diabetes mellitus Kidney disease Status post insertion of nerve stimulator Thyroid disease Wears glasses Wears hearing aid Home Medications aspirin 81 mg tablet,delayed release 81 mg PO DAILY 02/02/18 [History Last Taken 07/14/21] clopidogrel 75 mg tablet 75 mg PO DAILY tab 02/02/18 [History Last Taken 07/13/21] multivitamin 1 tab PO DAILY 02/02/18 [History Last Taken 07/15/21] rosuvastatin 40 mg tablet 40 mg PO DAILY 02/02/18 [History Last Taken 07/15/21] tramadol 50 mg tablet 50 mg PO DAILY PRN tab 02/02/18 [History Last Taken Unknown] nitroglycerin 0.4 mg sublingual tablet 0.4 mg SUBLINGUAL Q5M PRN 02/11/18 [History Last Taken Unknown] dulaglutide [Trulicity] 1.5 mg SUBCUT WE 04/16/21 [History Last Taken 07/10/21] insulin glargine [Lantus Solostar U-100 Insulin] 50 unit SC QHS 04/16/21 [History Last Taken 07/14/21] gabapentin 600 mg PO TID 07/15/21 [History Last Taken 07/15/21] insulin aspart U-100 [Novolog Flexpen U-100 Insulin] 20 unit SC TID 07/15/21 [History Last Taken 07/15/21] levothyroxine 50 mcg PO DAILY 07/15/21 [History Last Taken 07/15/21] magnesium oxide 400 mg PO DAILY 07/15/21 [History Last Taken 07/15/21] meclizine 25 mg PO TID PRN 07/15/21 [History Last Taken Unknown] Allergy/AdvReac Type Severity Reaction Status Date / Time No Known Allergies Allergy Verified 04/16/21 14:14 Family History Mother Diabetes Father Cancer Surgical History History of cardiac catheterization (~2012) History of carpal tunnel surgery of left wrist History of carpal tunnel surgery of right wrist History of coronary artery stent placement Social History Smoking Status: Former smoker second hand exposure: No alcohol intake: never substance use type: does not use Physical Exam Const alert, oriented x3 and no apparent distress General Appearance: cooperative Exam Limitations: no limitations HEENT normocephalic and head/scalp atraumatic Eyes PERRL and EOMs intact bilaterally Neck No nuchal rigidity, supple and No nodes Resp normal air movement and clear to auscultation bilaterally Cardio regular rate, regular rhythm and no murmurs GI normal to inspection, nondistended, normoactive bowel sounds Extremity no clubbing, cyanosis or edema Skin Skin Narrative: Lumbar incision site with small dehiscence, pain, redness Neuro CN's II-XII intact bilaterally Lab / Micro Data Result Diagrams: 07/16/21 06:15 07/16/21 06:15 Labs: Laboratory Results - last 24 hr 07/15/21 11:54: WBC 11.5 H, RBC 3.55 L, Hgb 10.0 L, Hct 30.7 L, MCV 86.5, MCH 28.2, MCHC 32.6, RDW Std Deviation 42.3, RDW Coeff of Konstantin 13.2, Plt Count 267, MPV 10.0, Immature Gran % (Auto) 0.400, Neut % (Auto) 80.0 H, Lymph % (Auto) 8.5 L, [place] % (Auto) 10.1 H, Eos % (Auto) 0.6, Baso % (Auto) 0.4, Absolute Neuts (auto) 9.2 H, Absolute Lymphs (auto) 0.98, Nucleated RBC % 0 07/15/21 12:30: Sodium 135 L, Potassium 4.1, Chloride 103, Carbon Dioxide 25.0, Anion Gap 7, BUN 26 H, Creatinine 1.39 H, Estim Creat Clear Calc 48.91, Est GFR (MDRD) Af Amer 64, Est GFR (MDRD) Non-Af 53 L, BUN/Creatinine Ratio 18.7, Glucose 46 L, Calcium 8.8 07/15/21 12:30: Troponin I High Sens 74 07/15/21 13:47: Lactic Acid 0.9 07/15/21 15:21: POC Glucose 88 07/15/21 17:17: POC Glucose 106 07/15/21 21:42: POC Glucose 158 H 07/16/21 06:15: WBC 10.8, RBC 3.15 L, Hgb 8.7 L, Hct 27.5 L, MCV 87.3, MCH 27.6, MCHC 31.6 L, RDW Std Deviation 42.9, RDW Coeff of Konstantin 13.3, Plt Count 228, MPV 9.6, Immature Gran % (Auto) 0.400, Neut % (Auto) 78.9 H, Lymph % (Auto) 8.1 L, [place] % (Auto) 10.1 H, Eos % (Auto) 1.9, Baso % (Auto) 0.6, Absolute Neuts (auto) 8.6 H, Absolute Lymphs (auto) 0.88, Nucleated RBC % 0 07/16/21 06:15: Sodium 137, Potassium 4.4, Chloride 105, Carbon Dioxide 25.0, Anion Gap 7, BUN 23 H, Creatinine 1.37 H, Estim Creat Clear Calc 49.62, Est GFR (MDRD) Af Amer 65, Est GFR (MDRD) Non-Af 54 L, BUN/Creatinine Ratio 16.8, Glucose 214 H, Calcium 8.0 L, Total Bilirubin 0.50, AST 22, ALT 22, Alkaline Phosphatase 79, Total Protein 7.0, Albumin 2.1 L, Globulin 4.9 H, Albumin/Globulin Ratio 0.4 L 07/16/21 06:31: POC Glucose 179 H Micro: Microbiology 07/15/21 13:55 Wound - Back Wound Culture - Preliminary Gram positive organism 07/15/21 13:50 Nasal Secretion SARS-CoV-2 Antigen (Rapid) - Final Radiology Impression Chest X-Ray 07/15/21 14:02 IMPRESSION: No acute abnormality is present. Electronically Signed: Christiano Rosado MD at 14:32 EDT , Service support ,
[2021-07-16] MEDS: traMADol 50 MG Tablet PO ×2 (10:21→21:40)
--- NOTE | 2021-07-16 11:19 | NURSING ---
pox was running from 84-89% pt talking on phone, spoke w/ pt about possibly getting back to bed and lying on stomach to help w/ oxygen reading and pt refuses, states to person on other end of phone that nurse is in here bitchin at me to get off the phone-i explained to him that talking would increase his oxygen needs some but that lying prone may help-he reused to change positions stating i will only do what i have been doing and nothing more and i am not sleeping on my belly!
[2021-07-16 12:16] LABS: Bedside Glucose 336 mg/dL (70-110)
[2021-07-16 13:43] VITALS: BP 167/88; PULSE 69; RESP 18; TEMP 37.2; O2SAT 96
--- NOTE | 2021-07-16 14:51 | PCM.PN.HOSP ---
Subjective Subjective Patient was seen and examined. Denied any new complaints. Denies any fevers or chills. Objective Data Objective Data Vital Signs: Vital Signs Temp Pulse Resp BP Pulse Ox 99.0 F 69 18 167/88 H 96 07/16/21 13:43 07/16/21 13:43 07/16/21 13:43 07/16/21 13:43 07/16/21 13:43 Oxygen Delivery Method Room Air Weight: 113.2 kg Body Mass Index (BMI) 34.0 Intake & Output: Intake and Output for Last 24 Hours 07/14/21 07/15/21 07/16/21 23:59 23:59 23:59 Intake Total 1326 / 1326 1850 / 1850 Output Total 1200 / 1200 Balance 1326 / 1326 650 / 650 Lab / Micro Data Result Diagrams: 07/16/21 06:15 07/16/21 06:15 Labs: Laboratory Results - last 24 hr 07/15/21 15:21: POC Glucose 88 07/15/21 17:17: POC Glucose 106 07/15/21 21:42: POC Glucose 158 H 07/16/21 06:15: WBC 10.8, RBC 3.15 L, Hgb 8.7 L, Hct 27.5 L, MCV 87.3, MCH 27.6, MCHC 31.6 L, RDW Std Deviation 42.9, RDW Coeff of Konstantin 13.3, Plt Count 228, MPV 9.6, Immature Gran % (Auto) 0.400, Neut % (Auto) 78.9 H, Lymph % (Auto) 8.1 L, [place] % (Auto) 10.1 H, Eos % (Auto) 1.9, Baso % (Auto) 0.6, Absolute Neuts (auto) 8.6 H, Absolute Lymphs (auto) 0.88, Nucleated RBC % 0 07/16/21 06:15: Sodium 137, Potassium 4.4, Chloride 105, Carbon Dioxide 25.0, Anion Gap 7, BUN 23 H, Creatinine 1.37 H, Estim Creat Clear Calc 49.62, Est GFR (MDRD) Af Amer 65, Est GFR (MDRD) Non-Af 54 L, BUN/Creatinine Ratio 16.8, Glucose 214 H, Calcium 8.0 L, Total Bilirubin 0.50, AST 22, ALT 22, Alkaline Phosphatase 79, Total Protein 7.0, Albumin 2.1 L, Globulin 4.9 H, Albumin/Globulin Ratio 0.4 L 07/16/21 06:31: POC Glucose 179 H 07/16/21 12:07: POC Glucose 336 H Micro: Microbiology 07/15/21 13:55 Wound - Back Gram Stain - Final 07/15/21 13:55 Wound - Back Wound Culture - Preliminary Gram positive organism 07/15/21 13:50 Nasal Secretion SARS-CoV-2 Antigen (Rapid) - Final Physical Exam Narrative Physical exam: General: Alert, Oriented x3, Cooperative, No apparent distress, Well developed, hard of hearing, obese HEENT: Atraumatic Oral: Moist Mucosa Neck: Supple Lungs: Clear to auscultation Cardiovascular: HS I+II, regular, no murmurs Abdomen: Bowel Sounds Present, Soft, Non Tender Extremities: No edema Skin: Swelling over lumbosacral region?L1/L2, fluctuant, slight discharge, tender, no surrounding erythema Assessment & Plan Assessment/Plan (1) Wound dehiscence: (2) Type 2 diabetes mellitus with complication, with long-term current use of insulin: (3) Essential hypertension, benign: (4) Heart disease: (5) Hypothyroid: QUALIFIERS: Hypothyroidism type: acquired Qualified Code(s): E03.9 - Hypothyroidism, unspecified PLAN: 1. Acute lumbar sacral and wound dehiscence;patient with underlying spinal stimulator placed on 04/22/21 Concern for possible infected spinal stimulator WBC count improved to 10.8 from 11.5 Patient had a recent CT of the lumbar spine that showed soft tissue thickening and ulceration of the overlying skin Patient cannot have an MRI ID consulted, on IV vancomycin and cefepime Wound RN consulted Continue to hold Plavix and aspirin in anticipation of surgery Consult Dr. Boles 2. Recent acute kidney injury in an outside hospital Patient being admitted creatinine 1.39, creatinine remains at 1.37 3. Type II DM, complicated by peripheral neuropathy, blood sugars are uncontrolled Patient had hypoglycemia on admission We will resume Lantus, continue on medium to high dose insulin sliding scale Continue to hold Metformin Continue gabapentin 4. Anemia, drop in hemoglobin from 10.0-8.7 No signs of acute blood loss We will repeat blood work in a.m. 5. Hyperlipidemia, on statin Charges/Coding Visit Charges Inpatient E&M: 82484 Subs Hosp L3
--- NOTE | 2021-07-16 15:05 | CASEMGMT ---
LUCY LAMBERT Assessment: Face to Face with pt for initial transition planning/care coordination assessment. RN FAUSTO introduced self and role at [facility], pt voices understanding and consents to assessment. Pt is A/O x4 and answers all questions appropriately at this time. Pt sitting up in chair with at bedside in no distress. Care providers, pharmacy, and demographics verified/updated. Admitting Dx: infected incisional wound PCP:[facility] Specialists: renata Boles; chip washer from [place] who comes to [facility] Pharmacy: [facility] Insurance: Anand SANCHEZ Prescription Benefit: yes LW/HPOA: Pt denies having a LW/DPOA and need for info regarding AD. LNOK: Vidya Ferrera, Living Arrangements: Pt lives with in a single story house with 4 steps to enter with rails on both sides. Transportation: Pt drives self and denies concerns with transportation. DME/HHC/SNF: Pt has a cane and walker at home but does not use. Pt denies hx of SNF or HHC. Pt states no concerns with going home at time of dc. Pt reports he may have his spinal stimulator removed. Discussed the possibility of needed IV atb if this happens. Pt states he does want to do this at home vs going to a SNF. Pt states no further concerns/needs. CM to follow. Advised pt to ask CM if any further question/concerns/needs arise, voices understanding. Pt Goal: Home Plan: Home with possible IV atb and HHC.
[2021-07-16 15:51] LABS: Bacteria 0 SEEN /hpf (None Seen); Mucous, Urine 0 SEEN /hpf (<or=2+); Red Blood Cells-Urine 0 SEEN /hpf (0-5); White Blood Cells 0 SEEN /hpf (0-5)
[2021-07-16 15:55] LABS: Color, Urine Yellow (Yellow); Glucose, Dipstick 1000 mg/dl (Normal); Ketone-Dipstick Negative (Negative); Leukocyte Esterase-Dipstick Negative /ul (Negative); Nitrite-Dipstick Negative (Negative); Occult Blood-Urine Negative /ul (Negative); Protein-Dipstick 30 mg/dl (Negative); Urine Bilirubin Dipstick Negative (Negative); Urine Clarity Clear (Clear); Urine Urobilinogen Normal (Normal)
[2021-07-16 16:03] LABS: Squamous Epithelial Cells - UA 0-5 SEEN /hpf (0-5)
[2021-07-16 21:00] VITALS: BP 134/78; PULSE 68; RESP 18; TEMP 37.3; O2SAT 96
[2021-07-16 21:36] LABS: Bedside Glucose 292 mg/dL (70-110)
[2021-07-16] MEDS: Atorvastatin Calcium 80 MG Tablet PO (21:39)
[2021-07-16] MEDS: MELATONIN 10 MG TABLET 5 MG PO (21:47)
[2021-07-17 00:11] LABS: Bedside Glucose 273 mg/dL (70-110)
[2021-07-17] MEDS: Vancomycin IV 1,000 MG/200 ML BAG 200 MG IV ×2 (04:17→16:20)
[2021-07-17 04:19] VITALS: BP 115/67; PULSE 69; RESP 18; TEMP 36.8; O2SAT 93
[2021-07-17 04:23] LABS: Vancomycin, Trough Level 15.5 ug/mL (5.0-15.0)
--- NOTE | 2021-07-17 04:36 | PCM.RX.CS ---
Consult Pharmacy has been consulted to manage selected antiobiotic: Vancomycin Type of Consult: Follow-up Prior Doses of Antibiotics Received/Current Regimen: Medications Vancomycin HCl (Vancomycin) 1,000 mg in 200 mls @ 200 mls/hr IV Q12H BAM Last Admin: 07/17/21 04:17 Dose: 200 mls/hr Documented by: Labs: Sodium 137 mmol/L (136-145) 07/16/21 06:15 Potassium 4.4 mmol/L (3.5-5.1) 07/16/21 06:15 Chloride 105 mmol/L (98-107) 07/16/21 06:15 Carbon Dioxide 25.0 mmol/L (21.0-32.0) 07/16/21 06:15 Anion Gap 7 (5-15) 07/16/21 06:15 BUN 23 mg/dL (7-18) H 07/16/21 06:15 Creatinine 1.37 mg/dL (0.70-1.30) H 07/16/21 06:15 Est GFR (MDRD) Af Amer 65 mL/min (>60) 07/16/21 06:15 Est GFR (MDRD) Non-Af 54 mL/min (>60) L 07/16/21 06:15 BUN/Creatinine Ratio 16.8 RATIO (10-20) 07/16/21 06:15 Glucose 214 mg/dL (74-106) H 07/16/21 06:15 Vancomycin Trough 15.5 ug/mL (5.0-15.0) H 07/17/21 03:40 Microbiology: Microbiology 07/15/21 13:55 Wound - Back Gram Stain - Final 07/15/21 13:55 Wound - Back Wound Culture - Preliminary Gram positive organism 07/15/21 13:50 Nasal Secretion SARS-CoV-2 Antigen (Rapid) - Final Weight used for dosin kg Goal Trough: 15-20 mcg/mL Pharmacy Plan for Drug Dosing: Trough in goal range. Continue current dose and recheck in 4 days per policy. Pharmacy Service will continue to monitor and adjust dosing as required. Follow-Up Labs: Trough Vancomycin - 07/21 @ 1530
[2021-07-17] MEDS: Gabapentin 600 MG Tablet PO ×3 (06:42→22:11)
[2021-07-17] MEDS: Levothyroxine 50 MCG Tablet PO (06:42)
[2021-07-17 06:51] LABS: Bedside Glucose 132 mg/dL (70-110)
[2021-07-17] MEDS: Juven (unflavored) Packet 1 PACKET PO ×2 (07:31→16:19)
[2021-07-17 07:46] VITALS: PULSE 66
[2021-07-17 09:41] VITALS: BP 144/63; PULSE 69; RESP 18; TEMP 36.7; O2SAT 94
[2021-07-17] MEDS: traMADol 50 MG Tablet PO ×2 (10:11→22:10)
[2021-07-17] MEDS: Insulin Lispro 100 UNIT/ML INSULN.PEN SC ×3 (11:33→22:09)
[2021-07-17 11:45] LABS: Bedside Glucose 273 mg/dL (70-110)
[2021-07-17] MEDS: Acetaminophen 325 MG Tablet 650 MG PO (13:36)
[2021-07-17 13:39] VITALS: BP 149/69; PULSE 69; RESP 20; TEMP 36.5; O2SAT 92
--- NOTE | 2021-07-17 15:01 | PN.HOSP_ITS ---
Subjective Subjective Patient was seen and examined. No new complaints. Denies any fever or chills. Objective Data Objective Data Vital Signs: Vital Signs Temp Pulse Resp BP Pulse Ox 97.7 F L 69 20 H 149/69 H 92 07/17/21 13:39 07/17/21 13:39 07/17/21 13:39 07/17/21 13:39 07/17/21 13:39 Oxygen Delivery Method Room Air Weight: 113.2 kg Body Mass Index (BMI) 34.0 Intake & Output: Intake and Output for Last 24 Hours 07/15/21 07/16/21 07/17/21 23:59 23:59 23:59 Intake Total 1326 / 1326 2349 / 2549 1089.25 / 1089.25 Output Total 1200 / 1200 700 / 700 Balance 1326 / 1326 1149 / 1349 389.25 / 389.25 Lab / Micro Data Result Diagrams: 07/16/21 06:15 07/16/21 06:15 Labs: Laboratory Results - last 24 hr 07/16/21 15:40: Urine Color Yellow, Urine Clarity Clear, Urine pH 5.0, Ur Specific [place] 1.010, Urine Protein 30 H, Urine Glucose (UA) 1000 H, Urine Ketones Negative, Urine Occult Blood Negative, Urine Nitrite Negative, Urine Bilirubin Negative, Urine Urobilinogen Normal, Ur Leukocyte Esterase Negative, Urine RBC 0 SEEN, Urine WBC 0 SEEN, Ur Squamous Epith Cells 0-5 SEEN, Urine Bacteria 0 SEEN, Urine Mucus 0 SEEN 07/16/21 16:32: POC Glucose 292 H 07/16/21 21:36: POC Glucose 273 H 07/17/21 03:40: Vancomycin Trough 15.5 H 07/17/21 06:40: POC Glucose 132 H 07/17/21 11:32: POC Glucose 273 H Micro: Microbiology 07/15/21 13:47 Blood Culture (Wb) - Left Hand Blood Culture - Preliminary No growth in 48 hours. 07/15/21 14:20 Blood Culture (Wb) - Right Hand Blood Culture - Preliminary No growth in 48 hours. 07/15/21 13:55 Wound - Back Gram Stain - Final 07/15/21 13:55 Wound - Back Wound Culture - Preliminary Staphylococcus aureus 07/15/21 13:50 Nasal Secretion SARS-CoV-2 Antigen (Rapid) - Final Physical Exam Narrative Physical exam: General: Alert, Oriented x3, Cooperative, No apparent distress, Well developed, hard of hearing, obese HEENT: Atraumatic Oral: Moist Mucosa Neck: Supple Lungs: Clear to auscultation Cardiovascular: HS I+II, regular, no murmurs Abdomen: Bowel Sounds Present, Soft, Non Tender Extremities: No edema Skin: Swelling over lumbosacral region?L1/L2, fluctuant, slight discharge, [place], no surrounding erythema Assessment & Plan Assessment/Plan (1) Wound dehiscence: (2) Type 2 diabetes mellitus with complication, with long-term current use of insulin: (3) Essential hypertension, benign: (4) Heart disease: (5) Hypothyroid: QUALIFIERS: Hypothyroidism type: acquired Qualified Code(s): E03.9 - Hypothyroidism, unspecified PLAN: 1. Acute lumbar sacral and wound dehiscence, possible infected spi nal stimulator Spinal stimulator placed on 04/22/21 Patient had a recent CT of the lumbar spine that showed soft tissue thickening and ulceration of the overlying skin Patient cannot have an MRI ID and Dr. Boles consulted, Continue on IV vancomycin and cefepime Wound RN consulted Continue to hold Plavix and aspirin in anticipation of surgery 2. Recent acute kidney injury in an outside hospital Patient being admitted creatinine 1.39, creatinine remains at 1.37 3. Type II DM, complicated by peripheral neuropathy, blood sugars are fairly controlled Patient had hypoglycemia on admission Increase Lantus to 54 units QHS, continue on medium to high dose insulin sliding scale Continue to hold Metformin Continue gabapentin 4. Anemia, drop in hemoglobin from 10.0-8.7 No signs of acute blood loss Repeat blood work 5. Hyperlipidemia, on statin Charges/Coding Visit Charges Inpatient E&M: 14333 Subs Hosp L2
[2021-07-17 16:12] LABS: Absolute Neutrophil Count 5.2 X10^3/uL (2.0-7.7); Basophil# 0.04 X10^3/uL; Basophil% 0.5 % (0-1); Eosinophil# 0.28 X10^3/uL; Eosinophils% 3.7 % (0-5); Hematocrit 27.9 % (40-54); Hemoglobin 8.7 g/dL (13.0-16.5); Mean Corp Hgb Conc 31.2 g/dL (32-36); Mean Corpuscular Hgb 27.2 pg (27.0-32.0); Mean Corpuscular Volume 87.2 fL (80-94); Mean Platelet Vol. 10.1 fl (6.2-12.0); Monocyte# 0.81 X10^3/uL; Monocyte% 10.8 % (0-10); NRBC Flagged by Analyzer 0 % (0-5); Neutrophil # 5.16 X10^3/uL (2.7-7.7); Neutrophil % 68.6 % (47-70); Platelet Count 243 K/mm3 (150-450); RBC Distribution Width CV 13.3 % (11.6-14.6); RBC Distribution Width SD 42.6 fl (35.1-43.9); White Blood Count 7.5 K/mm3 (4.4-11.0)
--- NOTE | 2021-07-17 16:13 | PCM.HP.STD ---
HPI - General General Date of Admission: 07/15/21 Chief Complaint: Progressive infected back wound HPI Narrative FIDELINA CONRAD, is a 75 M who presents [facility] Medical History Arthritis Back pain Back problem Back problem Cardiology follow-up encounter Diabetes Diabetes type 2, controlled Easy bruising Excessive bleeding Former smoker Heart disease High cholesterol History of heart attack History of irregular heartbeat History of stress test HTN (hypertension) Hx of cardiac pacemaker (~08/2020) Hx of fracture of leg Hx of fracture of right hip Insulin dependent diabetes mellitus Kidney disease Status post insertion of nerve stimulator Thyroid disease Wears glasses Wears hearing aid Home Medications aspirin 81 mg tablet,delayed release 81 mg PO DAILY 02/02/18 [History Last Taken 07/14/21] clopidogrel 75 mg tablet 75 mg PO DAILY tab 02/02/18 [History Last Taken 07/13/21] multivitamin 1 tab PO DAILY 02/02/18 [History Last Taken 07/15/21] rosuvastatin 40 mg tablet 40 mg PO DAILY 02/02/18 [History Last Taken 07/15/21] tramadol 50 mg tablet 50 mg PO DAILY PRN tab 02/02/18 [History Last Taken Unknown] nitroglycerin 0.4 mg sublingual tablet 0.4 mg SUBLINGUAL Q5M PRN 02/11/18 [History Last Taken Unknown] dulaglutide [Trulicity] 1.5 mg SUBCUT WE 04/16/21 [History Last Taken 07/10/21] insulin glargine [Lantus Solostar U-100 Insulin] 50 unit SC QHS 04/16/21 [History Last Taken 07/14/21] gabapentin 600 mg PO TID 07/15/21 [History Last Taken 07/15/21] insulin aspart U-100 [Novolog Flexpen U-100 Insulin] 20 unit SC TID 07/15/21 [History Last Taken 07/15/21] levothyroxine 50 mcg PO DAILY 07/15/21 [History Last Taken 07/15/21] magnesium oxide 400 mg PO DAILY 07/15/21 [History Last Taken 07/15/21] meclizine 25 mg PO TID PRN 07/15/21 [History Last Taken Unknown] Allergy/AdvReac Type Severity Reaction Status Date / Time No Known Allergies Allergy Verified 04/16/21 14:14 Family History Mother Diabetes Father Cancer Surgical History History of cardiac catheterization (~2012) History of carpal tunnel surgery of left wrist History of carpal tunnel surgery of right wrist History of coronary artery stent placement Social History Smoking Status: Former smoker second hand exposure: No alcohol intake: never substance use type: does not use Vital Signs Vital Signs Vital Signs: 07/16/21 21:00 07/17/21 04:19 07/17/21 07:46 Temperature 99.2 F H 98.3 F Temperature Source Oral Oral Pulse Rate 68 69 66 Respiratory Rate 18 18 Respiratory Effort Respiratory Depth Respiratory Pattern Blood Pressure 134/78 H 115/67 Blood Pressure Mean 96 83 Blood Pressure Source Monitor Monitor Blood Pressure Position Semi-Fowlers Semi-Fowlers Blood Pressure Location Right Arm Right Arm Pulse Ox 96 93 Oxygen Delivery Method Room Air Room Air 07/17/21 09:41 07/17/21 09:51 07/17/21 13:39 Temperature 98.1 F 97.7 F L Temperature Source Oral Oral Pulse Rate 69 69 Respiratory Rate 18 20 H Respiratory Effort Normal Non-Labored Respiratory Depth Normal Respiratory Pattern Normal Blood Pressure 144/63 H 149/69 H Blood Pressure Mean 90 95 Blood Pressure Source Monitor Monitor Blood Pressure Position Semi-Fowlers Supine Blood Pressure Location Right Forearm Right Forearm Pulse Ox 94 92 Oxygen Delivery Method Room Air Room Air Room Air Weight Weight: 113.2 kg Body Mass Index (BMI) 34.0 Physical Exam Narrative Patient was seen and examined today he is awake alert patient was seen and examined today he is awake alert oriented x3 does not appear to be in any acute distress, His mid back incision with positive blister with minor serosanguineous discharge improved from the last exam the left buttock incision is well-healed with no tenderness at the site, no apparent discharge or redness. Results Lab / Micro Data Result Diagrams: 07/16/21 06:15 07/16/21 06:15 Labs: Laboratory Results - last 24 hr 07/16/21 16:32: POC Glucose 292 H 07/16/21 21:36: POC Glucose 273 H 07/17/21 03:40: Vancomycin Trough 15.5 H 07/17/21 06:40: POC Glucose 132 H 07/17/21 11:32: POC Glucose 273 H Micro: Microbiology 07/15/21 13:47 Blood Culture (Wb) - Left Hand Blood Culture - Preliminary No growth in 48 hours. 07/15/21 14:20 Blood Culture (Wb) - Right Hand Blood Culture - Preliminary No growth in 48 hours. 07/15/21 13:55 Wound - Back Gram Stain - Final 07/15/21 13:55 Wound - Back Wound Culture - Preliminary Staphylococcus aureus Assessment & Plan Assessment/Plan (1) Wound dehiscence: (2) Wound infection: PLAN: At this current time the patient will continue his current medication as well as his antibiotics per ID and the hospitalist patient will hold his Plavix in anticipation of the planned surgery on Thursday 07/19, Antibiotics per ID DC will be changed according to his culture and sensitivity, patient will be placed at n.p.o. status after midnight on 07/18 for anticipation of surgery on the plan is for I&D of the mid back incision with removal of a spinal cord stimulator leads as well as possible removal of the spinal cord stimulator generator at the left buttock area if it continues and tract for an infection the plan was discussed with the patient in details and the patient appears to understand.
[2021-07-17] MEDS: 0.9% Saline Lock 10 ML Syringe IV (16:20)
[2021-07-17 16:40] LABS: Bedside Glucose 246 mg/dL (70-110)
--- NOTE | 2021-07-17 19:41 | PCM.PN.ID ---
Physical Exam Narrative Feeling better, pain improved Const alert General Appearance: cooperative Resp normal air movement and clear to auscultation bilaterally Cardio regular rate and regular rhythm GI normal to inspection, nondistended, normoactive bowel sounds Skin Skin Narrative: no new rash ID ID: Route of nutrition/ use of supplements: [] Nutritional Intake: [] IV Site: [] Dougherty Catheter: [] Assessment & Plan Assessment/Plan (1) Wound infection: PLAN: Infection of spine stimulator at spine implantation site. Wound cx with staph aureus. CT done recently. Pt of Dr. Dubose. Is covid vaccinated. On augmentin for a few days prior to admit. Cont vanc, cefepime. D/w Dr. Dubose, plan is for lead removal, trying to keep device. Will follow
[2021-07-17 19:57] VITALS: BP 152/71; PULSE 68; RESP 18; TEMP 36.8; O2SAT 96
[2021-07-17] MEDS: MELATONIN 10 MG TABLET 5 MG PO (22:10)
[2021-07-17] MEDS: Atorvastatin Calcium 80 MG Tablet PO (22:10)
[2021-07-17 22:26] LABS: Bedside Glucose 265 mg/dL (70-110)
[2021-07-18] MEDS: Vancomycin IV 1,000 MG/200 ML BAG 200 MG IV ×2 (03:47→16:51)
[2021-07-18 03:52] VITALS: BP 135/56; PULSE 67; RESP 16; TEMP 36.8; O2SAT 96
[2021-07-18 06:27] LABS: Absolute Lymphocyte Count 1.31 X10^3/uL (0.83-4.51); Absolute Neutrophil Count 5.9 X10^3/uL (2.0-7.7); Basophil# 0.06 X10^3/uL; Basophil% 0.7 % (0-1); Eosinophil# 0.44 X10^3/uL; Eosinophils% 5.1 % (0-5); Hematocrit 27.7 % (40-54); Lymphocyte # 1.31 X10^3/ul (0.83-4.51); Lymphocyte % 15.2 % (19-41); Mean Corp Hgb Conc 32.5 g/dL (32-36); Mean Corpuscular Hgb 28.3 pg (27.0-32.0); Mean Corpuscular Volume 87.1 fL (80-94); Monocyte# 0.89 X10^3/uL; Monocyte% 10.3 % (0-10); NRBC Flagged by Analyzer 0 % (0-5); Neutrophil # 5.89 X10^3/uL (2.7-7.7); Neutrophil % 68.4 % (47-70); Platelet Count 250 K/mm3 (150-450); RBC Distribution Width CV 13.3 % (11.6-14.6); RBC Distribution Width SD 42.5 fl (35.1-43.9); Red Blood Count 3.18 M/mm3 (4.6-6.2); White Blood Count 8.6 K/mm3 (4.4-11.0)
[2021-07-18] MEDS: Levothyroxine 50 MCG Tablet PO (06:28)
[2021-07-18] MEDS: Gabapentin 600 MG Tablet PO ×3 (06:28→21:33)
[2021-07-18 06:46] LABS: Bedside Glucose 117 mg/dL (70-110)
[2021-07-18 06:55] LABS: Albumin, Serum 2.1 g/dL (3.2-5.0); BUN 35 mg/dL (7-18); BUN/Creat Ratio 27.6 RATIO (10-20); Creatinine, Serum 1.27 mg/dL (0.70-1.30); EST Glomerular Filtration Rate 59 mL/min (>60); Est Glom Filt Rate - Afr Amer 71 mL/min (>60); Estimated Creatinine Clearance 53.53 ml/min; Glucose 146 mg/dL (74-106); Protein, Total 7.4 g/dL (6.4-8.2)
[2021-07-18 06:56] LABS: ALB/GLOB Ratio 0.4 RATIO (0.9-2.4); AST(SGOT) 18 U/L (15-37); Alanine Aminotransfer ALT/SGPT 26 U/L (16-61); Alkaline Phosphatase 85 U/L (45-117); Anion Gap 5 (5-15); Calcium,Total 8.5 mg/dL (8.5-10.1); Chloride 104 mmol/L (98-107); Globulin 5.3 g/dL (2.2-4.2); Sodium Level 136 mmol/L (136-145)
[2021-07-18] MEDS: Juven (unflavored) Packet 1 PACKET PO ×2 (07:40→16:57)
--- NOTE | 2021-07-18 07:42 | NURSING ---
pt states he has had full series of phizer COVID vaccine, requesting his spouse bring that in so it can be placed in medical record.
--- NOTE | 2021-07-18 08:58 | PCS.PANDOC ---
PANDEMIC DOCUMENTATION INITIATED: Date: 06/17/2021 Time: 189907/15/21 1647
[2021-07-18] MEDS: traMADol 50 MG Tablet PO (09:40)
[2021-07-18 09:42] VITALS: BP 134/61; PULSE 74; RESP 22; TEMP 37.1; O2SAT 95
[2021-07-18] MEDS: 0.9% Saline Lock 10 ML Syringe IV ×2 (10:13→16:51)
[2021-07-18] MEDS: Insulin Lispro 100 UNIT/ML INSULN.PEN SC ×3 (11:17→21:38)
--- NOTE | 2021-07-18 12:18 | PCM.PN.HOSP ---
Subjective Subjective Patient seen and examined. No new events. Going for surgery tomorrow. Objective Data Objective Data Vital Signs: Vital Signs Temp Pulse Resp BP Pulse Ox 98.8 F 74 22 H 134/61 H 95 07/18/21 09:42 07/18/21 09:42 07/18/21 09:42 07/18/21 09:42 07/18/21 09:42 Oxygen Delivery Method Room Air Weight: 113.2 kg Body Mass Index (BMI) 34.0 Intake & Output: Intake and Output for Last 24 Hours 07/16/21 07/17/21 07/18/21 23:59 23:59 23:59 Intake Total 2349 / 2549 1339.25 / 1339.25 250 / 250 Output Total 1200 / 1200 700 / 700 Balance 1149 / 1349 639.25 / 639.25 250 / 250 Lab / Micro Data Result Diagrams: 07/18/21 05:50 07/18/21 05:50 Labs: Laboratory Results - last 24 hr 07/17/21 15:45: WBC 7.5, RBC 3.20 L, Hgb 8.7 L, Hct 27.9 L, MCV 87.2, MCH 27.2, MCHC 31.2 L, RDW Std Deviation 42.6, RDW Coeff of Konstantin 13.3, Plt Count 243, MPV 10.1, Immature Gran % (Auto) 0.400, Neut % (Auto) 68.6, Lymph % (Auto) 16.0 L, Parker % (Auto) 10.8 H, Eos % (Auto) 3.7, Baso % (Auto) 0.5, Absolute Neuts (auto) 5.2, Absolute Lymphs (auto) 1.20, Nucleated RBC % 0 07/17/21 16:18: POC Glucose 246 H 07/17/21 22:07: POC Glucose 265 H 07/18/21 05:50: WBC 8.6, RBC 3.18 L, Hgb 9.0 L, Hct 27.7 L, MCV 87.1, MCH 28.3, MCHC 32.5, RDW Std Deviation 42.5, RDW Coeff of Konstantin 13.3, Plt Count 250, MPV 10.0, Immature Gran % (Auto) 0.300, Neut % (Auto) 68.4, Lymph % (Auto) 15.2 L, Parker % (Auto) 10.3 H, Eos % (Auto) 5.1 H, Baso % (Auto) 0.7, Absolute Neuts (auto) 5.9, Absolute Lymphs (auto) 1.31, Nucleated RBC % 0 07/18/21 05:50: Sodium 136, Potassium 4.0, Chloride 104, Carbon Dioxide 27.0, Anion Gap 5, BUN 35 H, Creatinine 1.27, Estim Creat Clear Calc 53.53, Est GFR (MDRD) Af Amer 71, Est GFR (MDRD) Non-Af 59 L, BUN/Creatinine Ratio 27.6 H, Glucose 146 H, Calcium 8.5, Total Bilirubin 0.40, AST 18, ALT 26, Alkaline Phosphatase 85, Total Protein 7.4, Albumin 2.1 L, Globulin 5.3 H, Albumin/Globulin Ratio 0.4 L 07/18/21 06:27: POC Glucose 117 H Micro: Microbiology 07/15/21 13:55 Wound - Back Gram Stain - Final 07/15/21 13:55 Wound - Back Wound Culture - Final Meth. resistant Staph. aureus 07/15/21 13:47 Blood Culture (Wb) - Left Hand Blood Culture - Preliminary No growth in 48 hours. 07/15/21 14:20 Blood Culture (Wb) - Right Hand Blood Culture - Preliminary No growth in 48 hours. 07/15/21 13:50 Nasal Secretion SARS-CoV-2 Antigen (Rapid) - Final Physical Exam Narrative Physical exam: General: Alert, Oriented x3, Cooperative, No apparent distress, Well developed, hard of hearing, obese HEENT: Atraumatic Oral: Moist Mucosa Neck: Supple Lungs: Clear to auscultation Cardiovascular: HS I+II, regular, no murmurs Abdomen: Bowel Sounds Present, Soft, Non Tender Extremities: No edema Skin: Swelling over lumbosacral region?L1/L2, fluctuant, slight discharge, tender, no surrounding erythema Assessment & Plan Assessment/Plan (1) Wound dehiscence: (2) Type 2 diabetes mellitus with complication, with long-term current use of insulin: (3) Essential hypertension, benign: (4) Heart disease: (5) Hypothyroid: QUALIFIERS: Hypothyroidism type: acquired Qualified Code(s): E03.9 - Hypothyroidism, unspecified PLAN: 1. Acute lumbar sacral and wound dehiscence, possible infected spinal stimulator Spinal stimulator placed on 04/22/21 Patient had a recent CT of the lumbar spine that showed soft tissue thickening and ulceration of the overlying skin Patient cannot have an MRI ID and Dr. Boles consulted; surgery for removal of hardware planned tomorrow Continue on IV vancomycin and cefepime Wound RN consulted Continue to hold Plavix and aspirin 2. Recent acute kidney injury in an outside hospital Patient being admitted creatinine 1.39, creatinine remains at 1.37 Creatinine remained stable at 1.27 3. Type II DM, complicated by peripheral neuropathy, blood sugars are fairly controlled Patient had hypoglycemia on admission Will decrease Lantus to 25 units nightly in anticipation of surgery Continue to hold Metformin Continue gabapentin 4. Anemia, drop in hemoglobin from 10.0-8.7, hemoglobin stable at 9.0 5. Hyperlipidemia, on statin Charges/Coding Visit Charges Inpatient E&M: 04631 Subs Hosp L2
[2021-07-18 14:05] VITALS: BP 140/92; PULSE 70; RESP 16; TEMP 36.9; O2SAT 97
[2021-07-18 17:05] LABS: Bedside Glucose 280 mg/dL (70-110)
[2021-07-18 21:16] VITALS: BP 153/74; PULSE 73; RESP 18; TEMP 36.9; O2SAT 97
[2021-07-18] MEDS: Atorvastatin Calcium 80 MG Tablet PO (21:33)
[2021-07-18] MEDS: MELATONIN 10 MG TABLET 5 MG PO (21:33)
[2021-07-18] MEDS: Acetaminophen 325 MG Tablet 650 MG PO (21:37)
[2021-07-18 21:43] VITALS: RESP 18
[2021-07-18 21:51] LABS: Bedside Glucose 266 mg/dL (70-110)
[2021-07-18 22:11] LABS: Bedside Glucose 279 mg/dL (70-110)
[2021-07-18 22:16] VITALS: O2SAT 96
--- NOTE | 2021-07-18 22:16 | CPS ---
called by nurse for aero tx- pt stated not wheezing does not want aero tx at this time
[2021-07-19] VITALS (12 sets, daily range): BP systolic 131–170; BP diastolic 57–86; PULSE 60–84; RESP 16–18; TEMP 36.1–37; O2SAT 96–100; BMI 34.0
[2021-07-19] MEDS: Vancomycin IV 1,000 MG/200 ML BAG 200 MG IV ×2 (03:13→16:26)
[2021-07-19 05:24] LABS: Absolute Lymphocyte Count 1.23 X10^3/uL (0.83-4.51); Absolute Neutrophil Count 5.4 X10^3/uL (2.0-7.7); Basophil# 0.04 X10^3/uL; Basophil% 0.5 % (0-1); Eosinophil# 0.41 X10^3/uL; Eosinophils% 5.1 % (0-5); Hematocrit 25.7 % (40-54); Hemoglobin 8.1 g/dL (13.0-16.5); Lymphocyte # 1.23 X10^3/ul (0.83-4.51); Lymphocyte % 15.4 % (19-41); Mean Corp Hgb Conc 31.5 g/dL (32-36); Mean Corpuscular Hgb 27.5 pg (27.0-32.0); Mean Corpuscular Volume 87.1 fL (80-94); Mean Platelet Vol. 9.8 fl (6.2-12.0); Monocyte# 0.79 X10^3/uL; Monocyte% 9.9 % (0-10); NRBC Flagged by Analyzer 0 % (0-5); Neutrophil # 5.44 X10^3/uL (2.7-7.7); Neutrophil % 68.3 % (47-70); Platelet Count 294 K/mm3 (150-450); RBC Distribution Width CV 13.3 % (11.6-14.6); RBC Distribution Width SD 42.5 fl (35.1-43.9); Red Blood Count 2.95 M/mm3 (4.6-6.2)
[2021-07-19 05:55] LABS: ALB/GLOB Ratio 0.4 RATIO (0.9-2.4); AST(SGOT) 18 U/L (15-37); Alanine Aminotransfer ALT/SGPT 28 U/L (16-61); Albumin, Serum 1.9 g/dL (3.2-5.0); Alkaline Phosphatase 87 U/L (45-117); Anion Gap 5 (5-15); BUN 38 mg/dL (7-18); BUN/Creat Ratio 29.7 RATIO (10-20); Calcium,Total 8.6 mg/dL (8.5-10.1); Chloride 106 mmol/L (98-107); Creatinine, Serum 1.28 mg/dL (0.70-1.30); EST Glomerular Filtration Rate 58 mL/min (>60); Est Glom Filt Rate - Afr Amer 70 mL/min (>60); Estimated Creatinine Clearance 53.11 ml/min; Globulin 5.1 g/dL (2.2-4.2); Glucose 156 mg/dL (74-106); Sodium Level 138 mmol/L (136-145)
[2021-07-19 06:06] LABS: AST(SGOT) 19 U/L (15-37); Alanine Aminotransfer ALT/SGPT 28 U/L (16-61); Albumin, Serum 1.9 g/dL (3.2-5.0); Alkaline Phosphatase 89 U/L (45-117); Bilirubin, Direct 0.13 mg/dL (0.00-0.30); Globulin 5.1 g/dL (2.2-4.2)
[2021-07-19 06:13] LABS: Thyroid Stim Hormone (TSH) 1.97 uIU/mL (0.358-3.74)
[2021-07-19] MEDS: Gabapentin 600 MG Tablet PO ×2 (06:35→20:29)
[2021-07-19] MEDS: Levothyroxine 50 MCG Tablet PO (06:35)
[2021-07-19 06:41] LABS: International Normalized Ratio 1.2; Prothrombin Time (Protime)PT. 14.8 SECONDS (11.7-14.9)
[2021-07-19 07:28] LABS: Hemoglobin A1c 8.4 % (3.8-5.6)
--- NOTE | 2021-07-19 09:27 | CASEMGMT ---
LUCY LAMBERT NOTE: Pt screened with [facility] Palliative Care Screening Tool for strata 3, pt did not meet criteria. George DE LA CRUZN RN CM
[2021-07-19 11:26] LABS: Bedside Glucose 117 mg/dL (70-110)
[2021-07-19 11:26] LABS: Bedside Glucose 129 mg/dL (70-110)
--- NOTE | 2021-07-19 11:33 | WOUNDNOTE ---
Dressing to lower back D&I. patient is scheduled for surgery later today.
[2021-07-19 11:35] LABS: Bedside Glucose 117 mg/dL (70-110)
--- NOTE | 2021-07-19 14:15 | CASEMGMT ---
LUCY LAMBERT NOTE: Per Dr Peng, he anticipates pt will be able to d/c home on PO atb's, but final decision would be dependent on how things go w/surgery today. Pt made aware of same. He declines need for HHC if IV atb's are not needed. Pt made aware, if once he returns home, he decides he would like HHC, to discuss this w/his PCP. Pt voices understanding. Pt states he still has the list of local HHC agencies that was provided to him previously. George DE LA CRUZN LUCY CM
[2021-07-19] MEDS: Lactated Ringers 1,000 ML 100 ML IV ×2 (15:10→20:30)
--- NOTE | 2021-07-19 15:27 | PCM.PN.HOSP ---
Subjective Subjective Patient was seen and examined. Going for surgery today. No new events overnight. Objective Data Objective Data Vital Signs: Vital Signs Temp Pulse Resp BP Pulse Ox 97.7 F L 69 18 158/83 H 97 07/19/21 14:37 07/19/21 14:37 07/19/21 14:37 07/19/21 14:37 07/19/21 14:37 Oxygen Delivery Method Room Air Weight: 113.2 kg Body Mass Index (BMI) 34.0 Intake & Output: Intake and Output for Last 24 Hours 07/17/21 07/18/21 07/19/21 23:59 23:59 23:59 Intake Total 1339.25 / 1339.25 516.5 / 516.5 250 / 250 Output Total 700 / 700 2325 / 2325 Balance 639.25 / 639.25 516.5 / 516.5 -2075 / -2075 Lab / Micro Data Result Diagrams: 07/19/21 05:02 07/19/21 05:02 Labs: Laboratory Results - last 24 hr 07/18/21 11:14: POC Glucose 279 H 07/18/21 16:53: POC Glucose 280 H 07/18/21 21:23: POC Glucose 266 H 07/19/21 05:02: WBC 8.0, RBC 2.95 L, Hgb 8.1 L, Hct 25.7 L, MCV 87.1, MCH 27.5, MCHC 31.5 L, RDW Std Deviation 42.5, RDW Coeff of Konstantin 13.3, Plt Count 294, MPV 9.8, Immature Gran % (Auto) 0.800, Neut % (Auto) 68.3, Lymph % (Auto) 15.4 L, Stewart % (Auto) 9.9, Eos % (Auto) 5.1 H, Baso % (Auto) 0.5, Absolute Neuts (auto) 5.4, Absolute Lymphs (auto) 1.23, Nucleated RBC % 0 07/19/21 05:02: Sodium 138, Potassium 4.0, Chloride 106, Carbon Dioxide 27.0, Anion Gap 5, BUN 38 H, Creatinine 1.28, Estim Creat Clear Calc 53.11, Est GFR (MDRD) Af Amer 70, Est GFR (MDRD) Non-Af 58 L, BUN/Creatinine Ratio 29.7 H, Glucose 156 H, Calcium 8.6, Total Bilirubin 0.30, AST 18, ALT 28, Alkaline Phosphatase 87, Total Protein 7.0, Albumin 1.9 L, Globulin 5.1 H, Albumin/Globulin Ratio 0.4 L 07/19/21 05:02: APTT 37.0 H 07/19/21 05:02: TSH 1.97 07/19/21 05:02: Hemoglobin A1c 8.4 H 07/19/21 05:02: PT 14.8, INR 1.2 07/19/21 05:02: Total Bilirubin 0.30, Direct Bilirubin 0.13, AST 19, ALT 28, Alkaline Phosphatase 89, Total Protein 7.0, Albumin 1.9 L, Globulin 5.1 H 07/19/21 06:37: POC Glucose 129 H 07/19/21 08:26: POC Glucose 117 H 07/19/21 11:27: POC Glucose 117 H Micro: Microbiology 07/15/21 13:55 Wound - Back Gram Stain - Final 07/15/21 13:55 Wound - Back Wound Culture - Final Meth. resistant Staph. aureus 07/15/21 13:47 Blood Culture (Wb) - Left Hand Blood Culture - Preliminary No growth in 48 hours. 07/15/21 14:20 Blood Culture (Wb) - Right Hand Blood Culture - Preliminary No growth in 48 hours. 07/15/21 13:50 Nasal Secretion SARS-CoV-2 Antigen (Rapid) - Final Physical Exam Narrative Physical exam: General: Alert, Oriented x3, Cooperative, No apparent distress, Well developed, hard of hearing, obese HEENT: Atraumatic Oral: Moist Mucosa Neck: Supple Lungs: Clear to auscultation Cardiovascular: HS I+II, regular, no murmurs Abdomen: Bowel Sounds Present, Soft, Non Tender Extremities: No edema Skin: Swelling over lumbosacral region?L1/L2, fluctuant, slight discharge, tender, no surrounding erythema Assessment & Plan Assessment/Plan (1) Wound dehiscence: (2) Type 2 diabetes mellitus with complication, with long-term current use of insulin: (3) Essential hypertension, benign: (4) Heart disease: (5) Hypothyroid: QUALIFIERS: Hypothyroidism type: acquired Qualified Code(s): E03.9 - Hypothyroidism, unspecified PLAN: 1. Acute lumbar sacral and wound dehiscence, possible infected spinal stimulator Spinal stimulator placed on 04/22/21 Patient had a recent CT of the lumbar spine that showed soft tissue thickening and ulceration of the overlying skin Patient cannot have an MRI Wound cultures growing MRSA ID and Dr. Boles consulted; surgery for removal of hardware planned tomorrow Continue on IV vancomycin and cefepime Wound RN consulted Continue to hold Plavix and aspirin Will follow up after surgery 2. Recent acute kidney injury in an outside hospital Patient being admitted creatinine 1.39, creatinine remains at 1.37 Creatinine remained stable at 1.27 3. Type II DM, complicated by peripheral neuropathy, blood sugars are fairly controlled Patient had hypoglycemia on admission HbA1c is 8.4 Will continue Lantus to 25 units nightly in anticipation of surgery Continue to hold Metformin Continue gabapentin 4. Anemia, drop in hemoglobin from 10.0-8.7, hemoglobin stable at 8.1 5. Hyperlipidemia, on statin Charges/Coding Visit Charges Inpatient E&M: 93385 Subs Hosp L2
--- NOTE | 2021-07-19 15:49 | PCM.PN.ID ---
Physical Exam Narrative Feeling better, OR planned, no fever Const alert General Appearance: cooperative Resp normal air movement and clear to auscultation bilaterally Cardio regular rate and regular rhythm GI normal to inspection, nondistended, normoactive bowel sounds Skin no rashes or lesions noted ID ID: Route of nutrition/ use of supplements: [] Nutritional Intake: [] IV Site: [] Dougherty Catheter: [] Assessment & Plan Assessment/Plan (1) Wound infection: PLAN: MRSA infection of spine stimulator at spine implantation site. Pt of Dr. Dubose. Is covid vaccinated. OR today. Tentative plan will be for 2 weeks po doxy 100mg bid, ID followup in 2 weeks. Will follow
[2021-07-19 16:01] LABS: Bedside Glucose 110 mg/dL (70-110)
[2021-07-19] MEDS: Bupivacaine 0.25% 30 ML Vial (17:45)
[2021-07-19] MEDS: Lidocaine 2% (20 ml mdv) 20 ML Vial (17:45)
--- NOTE | 2021-07-19 17:55 | PCM.OPRPT ---
Problems Associated Problem List Diagnoses (1) Wound infection: (2) Wound dehiscence: Report of Operation Date of Procedure: 07/19/21 Pre-Operative Diagnosis: L1-L2 wound infection, MRSA positive infected incision, wound dehiscence, granuloma Post-Operative Diagnosis: L1-L2 wound infection, MRSA positive infected incision, wound dehiscence, granuloma Surgery/Procedure Performed:: I&D of L1-L2 mid back incision and removal of granuloma, exploration of spinal cord stimulator generator, removal of spinal cord stimulator leads and anchors, primary closure of incision Description of Surgical Findings:: History and physical today was reviewed risk and benefits of procedure explained the patient understood agreed to procedure informed consent was obtained patient was taken to the operating room placed in the prone position antibiotic was provided by the anesthesia vancomycin prior to incision the lower back and buttock area was prepped and draped in a sterile fashion using iodine x3 the area was prepped close attention was made for the previous incision to be away from his left buttock incision the left buttock incision was then localized with a total of 8 cc of preservative-free 0.25% Marcaine with 2% lidocaine mixture the incision was then taken down with a 11 blade down to the fascia but the spinal cord stimulator generator was then reached the leads were then cut from the spinal cord stimulator the area was then irrigated with normal saline and a weight Ray-Rivka was then placed at the incision the mid back incision was then visualized approximately 5 cm in length and approximately 2 cm of width with then taken down to the fascia a significant amount of granulomatous tissue was then removed until a healthy skin and subcutaneous tissue were reached the spinal cord stimulator anchors were then removed the leads were then pulled directly from the incision site away from the spinal cord stimulator generator the spinal cord stimulator leads were then removed cautiously and the anchors were then removed hemostasis was maintained via Bovie the incision at the mid back area was then approximated with a 0 Vicryl approximated in an interrupted fashion the the incision was then approximated with a 2-0 Vicryl in a running fashion as well and a 4-0 Monocryl to the skin the area was then dressed with silver cell antimicrobial dressing as well as Tegaderm at the area, the spinal cord stimulator generator was then placed in a [employer] tyRex neuro absorbable antibacterial envelope, and the left buttock incision was then approximated with a 3-0 Vicryl followed by a 4-0 Vicryl subcuticular the incision was then dressed with Steri-Strips followed by bacitracin and Tegaderm the patient was then turned into the supine position motion as well and sensory exam was unchanged from prior to the procedure. Assessment and plan: this is a 75-year-old male with L1-L2 wound infection MRSA positive infected incision wound dehiscence and granuloma status post I&D of L1 to mid back incision and removal of granuloma exploration of the spinal cord stimulator generator removal of the spinal cord stimulator leads and anchors and primary closure of the incision patient will continue his current medications patient will continue his vancomycin per ID patient will be discharged per the hospitalist and ID decision on oral antibiotic patient will follow up in my office in approximately 1 week for reevaluation Surgeon: Jeb Dubose [employer] revenue officer: Jared Haney Type of Anesthesia: Local MAC Anesthesiologist: juana Specimen's removed: Spinal cord stimulator leads, spinal cord stimulator anchors Estimated Blood Loss (mL): 25 Fluids Replaced: 400 Complications none
[2021-07-19] MEDS: Atorvastatin Calcium 80 MG Tablet PO (20:29)
[2021-07-19] MEDS: Acetaminophen 325 MG Tablet 650 MG PO (20:29)
[2021-07-19] MEDS: MELATONIN 10 MG TABLET 5 MG PO (20:31)
[2021-07-19 21:35] LABS: Bedside Glucose 135 mg/dL (70-110)
[2021-07-20 04:14] VITALS: BP 150/69; PULSE 63; RESP 18; TEMP 36.7; O2SAT 95
[2021-07-20] MEDS: Vancomycin IV 1,000 MG/200 ML BAG 200 MG IV (04:16)
[2021-07-20] MEDS: Acetaminophen 325 MG Tablet 650 MG PO (04:18)
[2021-07-20] MEDS: Levothyroxine 50 MCG Tablet PO (04:19)
[2021-07-20] MEDS: Gabapentin 600 MG Tablet PO (04:20)
[2021-07-20 06:55] LABS: Bedside Glucose 108 mg/dL (70-110)
[2021-07-20] MEDS: Lactated Ringers 1,000 ML 100 ML IV (06:55)
[2021-07-20 08:00] VITALS: BP 158/77; PULSE 66; RESP 16; TEMP 36.8; O2SAT 94
[2021-07-20] MEDS: Juven (unflavored) Packet 1 PACKET PO (08:20)
--- NOTE | 2021-07-20 12:30 | PCM.DC ---
Discharge Instructions Diet Discharge Diet: Low fat / Low cholesterol, 2000 Calorie Control Diet and 2000 mg Sodium Diet Activity Discharge Activity: Return to Normal Activity Follow Up Care Test Results: Test results from this visit will be discussed in further detail at your follow-up appointment, if applicable. Discharge Plan Admission Admit Date/Time: 07/15/21 15:11 Primary Reason for Your Visit: Acute infected spinal stimulator Attending Provider: Aureliano Tate Primary Care Provider: John Rabago Consulting Providers: Jean-Paul Peng ; Jeb Dubose Instructions Additional Instructions / Restrictions: Continue with wound dressing with dry wound dressing. Follow-up with Dr. Boles in 1 week. Call the wound center - [phone]- to make an appointment to see them on Thursday. Do not remove dressing until the wound center has seen you. Do not perform any strenous activities like lifting heavy objects because your wound might open up. Discharge Orders/Prescriptions Prescriptions: New doxycycline monohydrate 100 mg capsule 100 mg PO BID 14 Days Qty: 28 RF: 0 Continued aspirin [Adult Aspirin Regimen] 81 mg tablet,delayed release (DR/EC) 81 mg PO DAILY RF: 0 clopidogrel 75 mg tablet 75 mg PO DAILY RF: 0 tramadol 50 mg tablet 50 mg PO DAILY PRN (Reason: Pain) RF: 0 rosuvastatin [Crestor] 40 mg tablet 40 mg PO DAILY RF: 0 multivitamin tablet 1 tab PO DAILY RF: 0 nitroglycerin 0.4 mg tablet, sublingual 0.4 mg SUBLINGUAL Q5M PRN (Reason: Chest Pain) RF: 0 Trulicity 1.5 mg/0.5 mL Pen Injector 1.5 mg SUBCUT WE RF: 0 Lantus Solostar U-100 Insulin 100 unit/mL (3 mL) insulin pen 50 unit SC QHS RF: 0 gabapentin 600 mg tablet 600 mg PO TID RF: 0 meclizine 25 mg Tablet 25 mg PO TID PRN (Reason: dizziness') RF: 0 levothyroxine 50 mcg Tablet 50 mcg PO DAILY RF: 0 magnesium oxide 400 mg magnesium Tablet 400 mg PO DAILY RF: 0 insulin aspart U-100 [Novolog Flexpen U-100 Insulin] 100 unit/mL insulin pen 20 unit SC TID RF: 0 Referrals / Follow Up: John Rabago MD [Primary Care Provider] - In 1 Week Jeb Dubose MD [STAFF PHYSICIAN] - Within 1 Week Jean-Paul Peng MD [STAFF PHYSICIAN] - Within 2 Weeks Disposition Disposition (needs filled in before D/C Order can be placed): Home, Self Care
--- NOTE | 2021-07-20 12:40 | PCM.DC.SUM ---
Providers Date of Admission: 07/15/21 Date of Discharge: 07/20/21 Primary Care Physician: Dr. John Rabago MD Consultations 07/15/21 17:10 Consult: Infectious Disease Routine Consulting Provider: Jean-Paul Peng Reason for Consult: Acute infected back wound EMERGENT Consult: No Notified: Yes Date Notified: 07/16/21 Time Notified: 01:26 Method of Notification: Answering Service Consult: Onc/Wound/engineering specialist Routine Comment: 07/16/21 14:32 Consult: Pain Management Routine Consulting Provider: Jeb Dubose Reason for Consult: Infected spinal stimulator EMERGENT Consult: No Notified: Yes Date Notified: 07/16/21 Time Notified: 14:35 Method of Notification: Answering Service Method of Consult:: In-Person Reason For Visit: INFECTED INCISIONAL WOUND Diagnosis Discharge Diagnosis (1) Wound infection: Status: Acute Code(s): T14.8XXA - Other injury of unspecified body region, initial encounter; L08.9 - Local infection of the skin and subcutaneous tissue, unspecified (2) Wound dehiscence: Status: Acute Code(s): T81.30XA - Disruption of wound, unspecified, initial encounter (3) Infection of spinal cord stimulator: Status: Acute Code(s): T85.733A - Infection and inflammatory reaction due to implanted electronic neurostimulator of spinal cord, electrode (lead), initial encounter (4) Type 2 diabetes mellitus with complication, with long-term current use of insulin: Status: Chronic Code(s): E11.8 - Type 2 diabetes mellitus with unspecified complications; Z79.4 - intermediate project manager (current) use of insulin (5) Hypothyroid: Status: Chronic Code(s): E03.9 - Hypothyroidism, unspecified Qualifiers: Hypothyroidism type: acquired Qualified Code(s): E03.9 - Hypothyroidism, unspecified (6) Essential hypertension, benign: Status: Acute Code(s): I10 - Essential (primary) hypertension Medications at Discharge Home Medications aspirin 81 mg tablet,delayed release 81 mg PO DAILY 02/02/18 clopidogrel 75 mg tablet 75 mg PO DAILY tab 02/02/18 multivitamin 1 tab PO DAILY 02/02/18 rosuvastatin 40 mg tablet 40 mg PO DAILY 02/02/18 tramadol 50 mg tablet 50 mg PO DAILY PRN tab 02/02/18 nitroglycerin 0.4 mg sublingual tablet 0.4 mg SUBLINGUAL Q5M PRN 02/11/18 Lantus Solostar U-100 Insulin 50 unit SC QHS 04/16/21 Trulicity 1.5 mg SUBCUT WE 04/16/21 gabapentin 600 mg PO TID 07/15/21 insulin aspart U-100 [Novolog Flexpen U-100 Insulin] 20 unit SC TID 07/15/21 levothyroxine 50 mcg PO DAILY 07/15/21 magnesium oxide 400 mg PO DAILY 07/15/21 meclizine 25 mg PO TID PRN 07/15/21 doxycycline monohydrate 100 mg PO BID 14 Days #28 cap 07/20/21 Hospital Course Operations - (07/19/21 - I&D of L1-L2 mid back incision and removal of granuloma, exploration of spinal cord stimulator generator, removal of spinal cord stimulator leads and anchors, primary closure of incision) Procedures None Summary of Care Provided Minutes Spent on Discharge: 55 Hospital Course: 75 M who presents with progressive low back wound and discharge. He is a patient of Dr. Boles. He had a spinal stimulator placed on 04/22/21 for advanced lumbosacral radiculopathy, lumbosacral degenerative disease and spinal stenosis. Patient states that his wound was closed after the procedure. He was recently admitted to [facility] and was lying mostly in bed when his wound irritated and opened up. He subsequently has been having progressive wound discharge. He had CT of the lumbar spine done on which showed soft tissue thickening ulceration of the overlying skin posterior to the L1-L2 level at the entrance of the left shows from the stimulator device. Patient was seen by Dr. Boles on 07/12/21 and was recommended started on Augmentin. He followed up today in the office and was recommended to come to the hospital for IV antibiotics. Wound cultures have been taken from the ED. wound cultures grew MRSA. Infectious disease and Dr. Boles were consulted during this hospital stay. It was recommended the patient has the spinal stimulator removed. On 07/19/21, an I&D of the L1-L2 mid back incision was done. Granuloma was removed. Exploration of the spinal cord stimulator generator was done with antibiotic pocket sent done. Spinal cord stimulator leads and anchors were removed. Patient was discharged on oral doxycycline for 2 weeks. To follow-up with infectious disease and with the doxycycline the outpatient. He was told not to do any strenuous activities until he was seen by . Patient will follow up with wound center for evaluation of his back wound. Physical Exam Narrative Physical exam: General: Alert, Oriented x3, Cooperative, No apparent distress, Well developed, hard of hearing, obese HEENT: Atraumatic Oral: Moist Mucosa Neck: Supple Lungs: Clear to auscultation Cardiovascular: HS I+II, regular, no murmurs Abdomen: Bowel Sounds Present, Soft, Non Tender Extremities: No edema Skin: Dressing over the low back. Weight / BMI Weight Weight: 113.2 kg Body Mass Index (BMI) 34.0 ABG / Lab / Microbiology Data Result Diagrams: 07/19/21 05:02 07/19/21 05:02 Laboratory: Laboratory Results - last 24 hr 07/19/21 15:56: POC Glucose 110 07/19/21 20:34: POC Glucose 135 H 07/20/21 06:50: POC Glucose 108 Microbiology: Microbiology 07/15/21 13:55 Wound - Back Gram Stain - Final 07/15/21 13:55 Wound - Back Wound Culture - Final Meth. resistant Staph. aureus 07/15/21 13:47 Blood Culture (Wb) - Left Hand Blood Culture - Preliminary No growth in 48 hours. 07/15/21 14:20 Blood Culture (Wb) - Right Hand Blood Culture - Preliminary No growth in 48 hours. 07/15/21 13:50 Nasal Secretion SARS-CoV-2 Antigen (Rapid) - Final D/C Instructions Discharge Diet: Low fat / Low cholesterol, 2000 Calorie Control Diet and 2000 mg Sodium Diet Meaningful Use Info Meaningful Use Diagnoses (Choose all that apply): None applicable Discharge Plan Admission Admit Date/Time: 07/15/21 15:11 Primary Reason for Your Visit: Acute infected spinal stimulator Attending Provider: Aureliano Tate Primary Care Provider: John Rabago Consulting Providers: Jean-Paul Peng ; Jeb Dubose Instructions Additional Instructions / Restrictions: Continue with wound dressing with dry wound dressing. Follow-up with Dr. Boles in 1 week. Call the wound center - [phone]- to make an appointment to see them on Thursday. Do not remove dressing until the wound center has seen you. Do not perform any strenous activities like lifting heavy objects because your wound might open up. Discharge Orders/Prescriptions Prescriptions: New doxycycline monohydrate 100 mg capsule 100 mg PO BID 14 Days Qty: 28 RF: 0 Continued aspirin [Adult Aspirin Regimen] 81 mg tablet,delayed release (DR/EC) 81 mg PO DAILY RF: 0 clopidogrel 75 mg tablet 75 mg PO DAILY RF: 0 tramadol 50 mg tablet 50 mg PO DAILY PRN (Reason: Pain) RF: 0 rosuvastatin [Crestor] 40 mg tablet 40 mg PO DAILY RF: 0 multivitamin tablet 1 tab PO DAILY RF: 0 nitroglycerin 0.4 mg tablet, sublingual 0.4 mg SUBLINGUAL Q5M PRN (Reason: Chest Pain) RF: 0 Trulicity 1.5 mg/0.5 mL Pen Injector 1.5 mg SUBCUT WE RF: 0 Lantus Solostar U-100 Insulin 100 unit/mL (3 mL) insulin pen 50 unit SC QHS RF: 0 gabapentin 600 mg tablet 600 mg PO TID RF: 0 meclizine 25 mg Tablet 25 mg PO TID PRN (Reason: dizziness') RF: 0 levothyroxine 50 mcg Tablet 50 mcg PO DAILY RF: 0 magnesium oxide 400 mg magnesium Tablet 400 mg PO DAILY RF: 0 insulin aspart U-100 [Novolog Flexpen U-100 Insulin] 100 unit/mL insulin pen 20 unit SC TID RF: 0 Referrals / Follow Up: John Rabago MD [Primary Care Provider] - In 1 Week Jeb Dubose MD [STAFF PHYSICIAN] - Within 1 Week Jean-Paul Peng MD [STAFF PHYSICIAN] - Within 2 Weeks Disposition Disposition (needs filled in before D/C Order can be placed): Home, Self Care Charges/Coding Visit Charges Inpatient E&M: 19348 Disch Hosp
[2021-07-20] MEDS: Insulin Lispro 100 UNIT/ML INSULN.PEN SC (12:51)
[2021-07-20 14:18] VITALS: BP 160/79; PULSE 72; RESP 16; TEMP 36.7; O2SAT 94
[2021-07-20 16:30] LABS: Bedside Glucose 278 mg/dL (70-110)
--- NOTE | 2021-07-22 17:33 | CASEMGMT ---
LUCY LAMBERT Discharge Follow-up Phone Call: JASKARAN: Lobo Strata: 3 Call Date: 07/22/21 Discharge Date: 07/20/21 Time of Call: 1730 Admitting Diagnosis: wound infection This RN CM contacted pt via phone for discharge follow-up. Pt states he has been doing fine since discharge. Pt states he obtained his antibiotic and has been taking it as prescribed. Pt verified he has two weeks worth and states he will make an appointment with Dr. Peng to evaluate his need to continue. Pt states he contacted the wound center today and was told that he has to be under a physician's care for 90 days before he can be seen at the wound center for wound care. He was unable to obtain an appointment as he was directed at discharge. Pt states the wound center was going to contact Dr. Boles regarding plans. Pt states he would be open to home health care if needed for dressing changes or his is able to assist with changing it if they know what to use. Instructed pt to call Dr. Boles's office in the morning to get further instruction on dressing changes and/or determine if home health assistance is needed. Pt expressed understanding. Pt denies any further questions or concerns at this time. Selene Morfin RN CM
--- NOTE | 2021-07-23 11:37 | CASEMGMT ---
RN CM: This RN CM contacted pt via phone in follow-up to wound care needs. Pt states he has called Dr. Boles's office and left a message requesting instruction for wound care. Pt was provided with this RN CM's phone number and requested pt to call back if he does not receive a response from Dr. Boles or needs further assistance. Selene Morfin RN CM
--- NOTE | 2021-07-24 08:04 | CASEMGMT ---
LUCY LAMBERT Discharge Follow-up: Late entry for 07/23/21 at 1650: Pt called this LUCY LAMBERT to state he did receive a call from Dr. Boles's office with instructions to see Dr. Boles in the office on for a dressing change and evaluation. Pt states he was instructed to keep the dressing intact until that time. Pt denied any further needs and will follow-up with Dr. Boles for further instructions and assistance with dressing changes. Selene Morfin RN CM
== END 2021-07-20 14:45 | disposition home or self-care (01) | DRG 857 ==
LOC: ED 15:10 → MS3 16:01
PROVIDERS: Anesthesiology; Anesthesiology Pain Medicine; Admitting Provider Internal Medicine; Emergency Provider Emergency Medicine; PCP Family Medicine
PROC: 00PV0MZ Removal of Neurostimulator Lead from Spinal Cord, Open Approach (ICD-10-PCS; CPT 63685; principal; 2021-07-19 15:30)
DX: T81.49XA Infection following a procedure, other surgical site, initial encounter (principal); T81.31XA Disruption of external operation (surgical) wound, not elsewhere classified, initial encounter; M48.07 Spinal stenosis, lumbosacral region; M51.17 Intervertebral disc disorders with radiculopathy, lumbosacral region; Y75.8 Miscellaneous neurological devices associated with adverse incidents, not elsewhere classified; M19.90 Unspecified osteoarthritis, unspecified site; I10 Essential (primary) hypertension; E11.42 Type 2 diabetes mellitus with diabetic polyneuropathy; E11.649 Type 2 diabetes mellitus with hypoglycemia without coma; E78.5 Hyperlipidemia, unspecified; E03.9 Hypothyroidism, unspecified; D64.9 Anemia, unspecified; B95.62 Methicillin resistant Staphylococcus aureus infection as the cause of diseases classified elsewhere; N28.9 Disorder of kidney and ureter, unspecified; Z79.02 Long term (current) use of antithrombotics/antiplatelets; Z87.891 Personal history of nicotine dependence; Z95.0 Presence of cardiac pacemaker; Z79.899 Other long term (current) drug therapy; Z79.82 Long term (current) use of aspirin; Z79.890 Hormone replacement therapy; Z79.4 Long term (current) use of insulin; I25.2 Old myocardial infarction; Z87.440 Personal history of urinary (tract) infections
CPT/HCPCS: 36415; 71045; 72132; 80048; 80053; 80076; 80202; 81001; 82962; 83036; 83605; 84443; 84484; 85025; 85610; 85730; 87040; 87070; 87077; 87186; 87205; 87426; 93005; 97802; 99285; J7030; J7040; J7050; J7120; Q9967; A4216

== ENCOUNTER 2021-09-02 10:55 | Day surgery (SDC) | payer MEDICARE, OTHER, SELFPAY ==
[2021-09-02] VITALS (7 sets, daily range): BP systolic 107–148; BP diastolic 62–85; PULSE 62–69; RESP 16; TEMP 35.8–36.7; O2SAT 94–98; BMI 34.2
[2021-09-02] MEDS: Lactated Ringers 1,000 ML 100 ML IV (11:37)
[2021-09-02 11:40] LABS: Bedside Glucose 160 mg/dL (70-110)
--- NOTE | 2021-09-02 12:30 | FORE_PTH ---
PATIENT: FIDELINA CONRAD LOC: [facility] [place] U#:[id number] AGE/SX: 76/M ROOM: RE09/02/[address]: Dr. Jeb Dubose MD : 1945 BED: DIS: 09/02/2021 SPEC #: [id number] RECD: 09/02/21 15:07 STATUS: VIVIENNE RENeyda #: [id number] SUSAN: 09/02/21 12:[address]: Jeb Dubose DEPT: SURGICAL PATHOLOGY RECD BY: Marily Kingsley ENTERED: 09/03/21 08:17 SP TYPE: FOREIGN B OTHR DR: Dr. John Rabago MD Tissues: FOREIGN BODY Procedures: Surgery Specimen Level I HEADER OPERATION: Spinal cord stimulator generator removal PRE-OP DIAGNOSIS: Wound infection TISSUE SUBMITTED: Spinal cord stimulator generator (gross exam) GROSS DIAGNOSIS Metallic battery, clinically spinal cord stimulator generator. MIGUEL:pat 09/03/21 MICROSCOPIC DESCRIPTION Slides are reviewed. GROSS DESCRIPTION Received in fixative is one container labeled with the patient's name and designated left gluteal region incision. The specimen consists of a metallic battery measuring 5.5 x 4.5 x 0.5 cm. The battery has inscription on one side ?[employer] with AdaptiveStim? and opposite side shows ?[id number].? The specimen is for gross identification only. / MIGUEL:pat 09/03/21 CPT: 08453
[2021-09-02] MEDS: Cefazolin 2 GM in 0.9% Normal Saline 100 ML IV (13:00)
[2021-09-02] MEDS: Bupivacaine 0.25% 30 ML Vial (13:20)
[2021-09-02] MEDS: Lidocaine 2% (20 ml mdv) 20 ML Vial (13:20)
--- NOTE | 2021-09-02 13:28 | PCM.OPRPT ---
Report of Operation Date of Procedure: 09/02/21 Description of Surgical Findings:: Associated Problem List Diagnoses (1) Wound infection: (2) Wound dehiscence: Pre-Operative Diagnosis: Left gluteal region wound infection, granuloma Post-Operative Diagnosis: Left gluteal region wound infection, granuloma Surgery/Procedure Performed:: I&D of left gluteal area incision and removal of granuloma, exploration of spinal cord stimulator generator, removal of spinal cord stimulator generator and primary closure of incision Description of Surgical Findings:: History and physical today was reviewed risk and benefits of procedure explained the patient understood agreed to procedure informed consent was obtained patient was taken to the operating room placed in the prone position, 2 g of Ancef antibiotic was provided by the anesthesia prior to incision the lower back and buttock area was prepped and draped in a sterile fashion using ChloraPrep the area was prepped close attention was made for the previous incision to be away from his left buttock incision the left buttock incision was then localized with a total of 13 cc of preservative-free 0.25% Marcaine with 2% lidocaine mixture the incision was then taken down with a 11 blade down to the fascia and the spinal cord stimulator generator was reached it was observed the edges of the incisions to be granulomatous the edges of the incision as well as the crater of the in wound was then taken down further with a 15 blade until healthy tissue was reached and active bleeding, the tissue was then sent to pathology for further evaluation and testing, the spinal cord stimulator generator was then removed and sent for pathology, the area was then irrigated with normal saline and irrisept, close observation for healthy tissue around the whole incision, hemostasis was maintained via Bovie the incision was then approximated with a 0 Vicryl approximated in an interrupted fashion the the incision was then approximated with a 2-0 Vicryl in an interrupted fashion as well leo to the skin, the area was then dressed with silver cell antimicrobial dressing as well as Tegaderm at the area, the patient was then turned into the supine position, motion as well and sensory exam was unchanged from prior to the procedure. Assessment and plan: this is a 76-year-old male with left gluteal region infected incision and granuloma status post I&D of left gluteal area incision and removal of granuloma, exploration of spinal cord stimulator generator, removal of spinal cord stimulator generator and primary closure of incision, the patient will continue his current medications patient, will continue his doxycycline 100 mg p.o. antibiotics, prescription was provided to the patient for Percocet 5-325 mg 1 p.o. every 4 hours for acute postoperative pain, postop instruction was given to the patient as well as his verbally and in writing, patient will follow up in my office in approximately 1 week for reevaluation. Surgeon: Jeb Dubose Type of Anesthesia: Local MAC Specimen's removed: Spinal cord stimulator generator, left buttock tissue Estimated Blood Loss (mL): 25 Fluids Replaced: 600 Complications none Type of Anesthesia: MAC Anesthesiologist: Jorge Rajan
== END 2021-09-02 14:59 | disposition home or self-care (01) ==
LOC: SDC 10:57 → AC 10:59
PROVIDERS: PCP Family Medicine; Referring Provider Anesthesiology Pain Medicine; Visit Provider Anesthesiology Pain Medicine
PROC: (CPT 63650; principal; 2021-09-02 12:15)
DX: Z46.2 Encounter for fitting and adjustment of other devices related to nervous system and special senses (principal); T81.30XA Disruption of wound, unspecified, initial encounter; Y75.1 Therapeutic (nonsurgical) and rehabilitative neurological devices associated with adverse incidents; M51.36 Other intervertebral disc degeneration, lumbar region; T85.733A Infection and inflammatory reaction due to implanted electronic neurostimulator of spinal cord, electrode (lead), initial encounter; I10 Essential (primary) hypertension; E03.9 Hypothyroidism, unspecified; E11.9 Type 2 diabetes mellitus without complications; I25.2 Old myocardial infarction; I25.10 Atherosclerotic heart disease of native coronary artery without angina pectoris; Z87.891 Personal history of nicotine dependence; Z79.82 Long term (current) use of aspirin; Z79.4 Long term (current) use of insulin; Z79.899 Other long term (current) drug therapy
CPT/HCPCS: 00400; 63688; 82962; 87070; 87075; 87102; 87205; 87206; 88300; J7120; J2405

== ENCOUNTER 2022-02-04 11:06 | Outpatient (CLI) | payer MEDICARE, OTHER, SELFPAY ==
[2022-02-04 12:10] LABS: Absolute Lymphocyte Count 0.68 X10^3/uL (0.83-4.51); Absolute Neutrophil Count 5.8 X10^3/uL (2.0-7.7); Basophil# 0.07 X10^3/uL; Basophil% 0.9 % (0-1); Eosinophil# 0.15 X10^3/uL; Hematocrit 35.9 % (40-54); Lymphocyte # 0.68 X10^3/ul (0.83-4.51); Lymphocyte % 9.1 % (19-41); Mean Corp Hgb Conc 33.4 g/dL (32-36); Mean Corpuscular Hgb 28.8 pg (27.0-32.0); Mean Corpuscular Volume 86.3 fL (80-94); Mean Platelet Vol. 10.6 fl (6.2-12.0); Monocyte# 0.76 X10^3/uL; Monocyte% 10.2 % (0-10); NRBC Flagged by Analyzer 0 % (0-5); Neutrophil # 5.76 X10^3/uL (2.7-7.7); Neutrophil % 77.3 % (47-70); Platelet Count 197 K/mm3 (150-450); RBC Distribution Width CV 13.2 % (11.6-14.6); RBC Distribution Width SD 41.4 fl (35.1-43.9); Red Blood Count 4.16 M/mm3 (4.6-6.2); White Blood Count 7.5 K/mm3 (4.4-11.0)
[2022-02-04 12:17] LABS: International Normalized Ratio 1.1; Partial Thromboplast Time 27.1 Seconds (24.1-36.2); Prothrombin Time (Protime)PT. 13.7 SECONDS (11.7-14.9)
[2022-02-04 13:07] LABS: Anion Gap 7 (5-15); BUN 29 mg/dL (7-18); BUN/Creat Ratio 18.6 RATIO (10-20); Calcium,Total 8.8 mg/dL (8.5-10.1); Chloride 110 mmol/L (98-107); Creatinine, Serum 1.56 mg/dL (0.70-1.30); EST Glomerular Filtration Rate 46 mL/min (>60); Est Glom Filt Rate - Afr Amer 56 mL/min (>60); Glucose 144 mg/dL (74-106); Potassium 4.3 mmol/L (3.5-5.1); Sodium Level 140 mmol/L (136-145)
[2022-02-04 13:37] LABS: Hemoglobin A1c 7.5 % (3.8-5.6)
== END 2022-02-04 23:59 | disposition home or self-care (01) ==
LOC: LAB 11:08
PROVIDERS: PCP Family Medicine; Referring Provider Physician Assistant Surgical; Visit Provider Physician Assistant Surgical
DX: Z01.818 Encounter for other preprocedural examination (principal); E11.9 Type 2 diabetes mellitus without complications; Z79.01 Long term (current) use of anticoagulants
CPT/HCPCS: 36415; 80048; 83036; 85025; 85610; 85730

== ENCOUNTER 2022-03-13 09:35 | Outpatient (RCR) | payer MEDICARE, OTHER, SELFPAY | END 2022-04-01 23:59 | disposition home or self-care (01) | LOC: WC 09:35 | PROVIDERS: PCP Family Medicine; Visit Provider Internal Medicine | DX: Z09 Encounter for follow-up examination after completed treatment for conditions other than malignant neoplasm (principal) ==

== ENCOUNTER 2022-03-24 09:44 | Day surgery (SDC) | payer MEDICARE, OTHER, SELFPAY ==
[2022-03-24] VITALS (7 sets, daily range): BP systolic 129–166; BP diastolic 49–101; PULSE 59–95; RESP 16; TEMP 36.2–36.6; O2SAT 70–100; BMI 36.3
[2022-03-24] MEDS: Lactated Ringers 1,000 ML 15 ML IV (10:32)
[2022-03-24 10:56] LABS: Bedside Glucose 116 mg/dL (74-106)
--- NOTE | 2022-03-24 11:06 | PCM.OPRPT ---
Problems Associated Problem List Diagnoses (1) Wound dehiscence: (2) Delayed surgical wound healing: Report of Operation Date of Procedure: 03/24/22 Pre-Operative Diagnosis: Delayed wound healing, thoracic incision Post-Operative Diagnosis: Delayed wound healing, thoracic incision Surgery/Procedure Performed:: 1. Irrigation and debridement thoracic incision 2. Wound exploration 3. primary closure Description of Surgical Findings:: The patient is a 76-year-old male who underwent attempted spinal cord stimulator placement, no hardware was able to be placed. He was followed in clinic and found to have delayed wound healing of his thoracic incision. The patient opted for operative intervention understanding the risk to include but not limited to infection, bleeding, damage to nerves arteries and veins, possibility of spinal fluid leak, paralysis, nerve palsy, continued pain, need for further surgery, deep vein thrombosis, pulmonary embolism, risk of stroke, heart attack or . The patient was identified in the preoperative holding area. There he received IV antibiotics preoperatively, Ancef, and was then transferred to the operative suite. Once in the operative suite after general endotracheal anesthesia was established, the patient was placed prone on the operating table. The arms were padded and all bony prominences were well-padded. The thoracic region was prepped and draped in a standard fashion. Bear hugger's were not turned on until the drapes were applied and sealed with Ioban. The prior sutures were removed. A 2.5 inch vertical midline thoracic incision was reopened. A small amount of brownish watery fluid was encountered. This was cultured. The incision was thoroughly irrigated and debrided of any necrotic tissue in the wound margins were debrided with a 15 blade. The fascia was identified and found to be intact. The fascia was reopened. No fluid, pus, or necrotic tissue was encountered. A second set of cultures was taken and sent. The incision was again thoroughly irrigated with 3 L of saline solution with a pulse mechanical inspector. The fascia was reclosed with #1 Vicryl, subcutaneous with 2-0 Vicryl, skin with 2-0 nylon. A sterile dressing was applied with Xeroform, 4 x 4's, ABD and tape. Sponge instrument and needle counts were correct at the end of the case. The patient was extubated and taken to the PACU without incident. Surgeon: Jeb Pierce Type of Anesthesia: General Specimen's removed: Superficial and deep cultures Estimated Blood Loss (mL): 20 cc Fluids Replaced: 350 cc Complications None Admit VTE Documentation VTE Present on Admission: No
--- NOTE | 2022-03-24 11:06 | PCM.PN.ORT ---
Subjective Subjective The patient was seen and examined postoperatively. He is resting comfortably in bed. Pain minimal. No complaints including numbness tingling weakness. Objective Data Objective Data Vital Signs: Vital Signs Temp Pulse Resp BP Pulse Ox 97.6 F L 70 16 166/72 H 98 03/24/22 10:23 03/24/22 10:23 03/24/22 10:23 03/24/22 10:03/24/22 10:23 Oxygen Delivery Method Room Air Weight: 260 lb 2.327 oz Body Mass Index (BMI) 36.3 Lab / Micro Data Labs: Laboratory Results - last 24 hr 03/24/22 10:16: POC Glucose 116 H Physical Exam Const alert, oriented x3 and no apparent distress General Appearance: cooperative and comfortable HEENT normocephalic and head/scalp atraumatic Eyes EOMs intact bilaterally and conjunctivae normal Neck full ROM General: normal visual inspection Chest inspection of chest normal and palpation of chest normal Resp normal respiratory effort and normal air movement Cardio regular rate, regular rhythm and peripheral pulses 2+ throughout GI soft to palpation, non-tender and non-distended Back/Spine Back/Spine Narrative: Dressing clean dry and intact Cervical Spine: cervical ROM normal Thoracic Spine / Upper Back: normal to inspection Lumbar Spine / Lower Back: normal to inspection Extremity normal to inspection, full ROM, normal capillary refill, no clubbing, cyanosis or edema and no calf tenderness Skin no rashes or lesions noted General Skin Exam: no breakdown Neuro oriented x3, CN's II-XII intact bilaterally, moves all extremities, no focal motor deficits, no sensory deficits noted and deep tendon reflexes 2+ bilaterally Motor Exam: strength 5/5 throughout and muscle tone normal throughout Assessment & Plan Assessment/Plan (1) Delayed surgical wound healing: PLAN: Okay to discharge home See discharge instructions Continue home antibiotics Follow-up with Dr. Pierce next week for repeat wound check
[2022-03-24] MEDS: Cefazolin 2 GM in 0.9% Normal Saline 100 ML IV (11:10)
[2022-03-24] MEDS: Bupivacaine Mpf 0.5% 30 ML VIAL (12:10)
[2022-03-24 13:56] LABS: Bedside Glucose 126 mg/dL (74-106)
== END 2022-03-24 15:06 | disposition home or self-care (01) ==
LOC: SDC 09:45 → AC 09:46
PROVIDERS: PCP Family Medicine; Referring Provider Orthopaedic Surgery; Visit Provider Orthopaedic Surgery
PROC: (CPT 22830; principal; 2022-03-24 11:00)
DX: T81.31XA Disruption of external operation (surgical) wound, not elsewhere classified, initial encounter (principal); T85.733A Infection and inflammatory reaction due to implanted electronic neurostimulator of spinal cord, electrode (lead), initial encounter; E11.40 Type 2 diabetes mellitus with diabetic neuropathy, unspecified; Z79.4 Long term (current) use of insulin; I10 Essential (primary) hypertension; E03.9 Hypothyroidism, unspecified; M19.90 Unspecified osteoarthritis, unspecified site; Z79.899 Other long term (current) drug therapy; E78.00 Pure hypercholesterolemia, unspecified; I25.2 Old myocardial infarction; Y83.8 Other surgical procedures as the cause of abnormal reaction of the patient, or of later complication, without mention of misadventure at the time of the procedure
CPT/HCPCS: 10180; 00400; 82962; 87070; 87075; 87205; J7120

== ENCOUNTER → 2022-11-24 | Outpatient (CLI) | payer MEDICARE, OTHER, SELFPAY ==
--- NOTE | 2022-11-24 09:58 | MRI_ITS ---
STUDY: MRI THORACIC SPINE WITHOUT CONTRAST REASON FOR EXAM: Male, 77 years old. PAIN TECHNIQUE: Standardized fat and water weighted pulse sequences were obtained in the sagittal and axial planes. COMPARISON: Thoracic spine radiographs 07/11/2021. FINDINGS: Normal kyphosis of the thoracic spine. There is no substantial scoliosis. T1-2, T2-3, T3-4, T4-5, T5-6, T6-7, T7-8, T8-9, T9-10, T10-11, T11-12: Normal endplates. Normal disc hydration, heights and morphology of the corresponding intervertebral discs. Normal central canal and intervertebral neural foramina at the corresponding levels. Normal visualized thoracic cord. Normal conus medullaris that terminates at the upper L1 vertebral body level. The soft tissue structures are unremarkable. MRI/Spine Thoracic (Routine) IMPRESSION: 1. No MRI evidence of recent compression fractures of thoracic spine. 2. No MRI evidence of thoracic extruded disc fragment, disc protrusion or spinal stenosis. 3. Normal thoracic spinal cord. 4. Incidentally included are lower bilateral renal cysts. Electronically Signed: Teofilo Hernandez MD at 12:33 EST ,
--- NOTE | 2022-11-24 09:58 | MRI_ITS ---
STUDY: MRI LUMBAR SPINE WITHOUT CONTRAST REASON FOR EXAM: Male, 77 years old. Back pain and bilateral leg pain x6 years. TECHNIQUE: Standardized fat and water weighted pulse sequences were obtained in the sagittal and axial planes. COMPARISON: CT lumbar spine with contrast 07/22/2021. FINDINGS: T11-T12: (Sagittal only). Normal endplates. Minimal disc space height narrowing. No ventral extradural defect. Normal central canal and bilateral intervertebral neural foramina. T12-L1: (Sagittal only). Normal endplates. Normal disc height, hydration and morphology. No ventral extradural defect. Normal central canal and bilateral intervertebral neural foramina. Normal lumbar lordosis. There is no substantial scoliosis. Normal conus medullaris that terminates at the upper L1 vertebral body level. L1-2: Normal endplates. Normal disc height, hydration and morphology. Normal bilateral facet joints. Normal central canal and bilateral lateral recesses. Normal bilateral intervertebral neural foramina. Bilateral renal cysts are visible at this level. L2-3: Normal endplates. Normal disc height, hydration and morphology. Normal bilateral facet joints. Normal central canal and bilateral lateral recesses. Normal bilateral intervertebral neural foramina. L3-4: Normal endplates. Normal disc height, hydration and morphology. Normal bilateral facet joints. Normal central canal and bilateral lateral recesses. Normal bilateral intervertebral neural foramina. L4-5: Normal endplates. Normal disc height, hydration and morphology. Normal bilateral facet joints. Normal central canal and bilateral lateral recesses. Normal bilateral intervertebral neural foramina. L5-S1: Normal endplates. Normal disc height, hydration and morphology. Moderate left degenerative facet arthropathy. Mild right degenerative facet arthropathy. Normal central canal and bilateral lateral recesses. Normal bilateral intervertebral neural foramina. Normal visualized sacral ala. Normal visualized paraspinous soft tissue structures. MRI/Spine Lumbar (Routine) IMPRESSION: 1. Progression of bilateral L5-S1 degenerative facet arthropathy, greater on the left when compared to CT lumbar spine of 07/12/2021. 2. No MRI evidence of lumbar extruded disc fragment, disc protrusion or spinal stenosis. Electronically Signed: Teofilo Hernandez MD at 12:42 EST ,
--- NOTE | 2022-11-24 10:00 | RAD_ITS ---
STUDY: X-RAY - ABDOMEN/PELVIS REASON FOR EXAM: Male, 77 years old. Clearance for MRI, Hx of stimulator implant and removal TECHNIQUE: Single AP view of the abdomen / pelvis. COMPARISON: None. FINDINGS: No evidence of a spinal stimulator device. RAD/Abdomen Single View IMPRESSION: No evidence of a spinal stimulator device. Electronically Signed: Christiano Rosado MD at 10:18 EST ,
[2022-11-24 11:12] VITALS: BP 140/90; PULSE 70; RESP 16; O2SAT 95
[2022-11-24 11:27] VITALS: BP 158/82; PULSE 70; RESP 18; O2SAT 96
[2022-11-24 11:41] VITALS: BP 151/73; PULSE 70; RESP 16; O2SAT 96
--- NOTE | 2022-11-24 11:57 | NURSING ---
Pt tolerated scan well. Joanne from [facility] called to reset pacer to prior mode.
== END | disposition home or self-care (01) ==
LOC: MRI 09:47
PROVIDERS: PCP Family Medicine
DX: M54.59 Other low back pain (principal); M54.6 Pain in thoracic spine; M54.16 Radiculopathy, lumbar region
CPT/HCPCS: 72146; 72148; 74018